=== PATIENT | female | born 1950 | race Caucasian/White ===

== ENCOUNTER → 2016-10-26 | Outpatient (REF) | payer OTHER ==
[2016-10-26 16:40] LABS: CREATININE FOR GFR 1.03 MG/DL (0.55-1.02); GLOMERULAR FILTRATION RATE 57.4 (>45)
== END ==
LOC: M LABDRAW1 15:28
PROVIDERS: ATTEND Physical Medicine & Rehabilitation
DX: M51.37 Other intervertebral disc degeneration, lumbosacral region (principal)

== ENCOUNTER → 2016-12-07 | Outpatient (REF) | payer OTHER ==
[2016-12-07 16:14] LABS: FREE T4 0.84 NG/DL (0.76-1.46)
[2016-12-07 16:31] LABS: MEAN CORPUSCULAR HEMOGLOBIN 29.4 pg (27.0-33.0); MEAN CORPUSCULAR HGB CONC 32.2 g/dl (32.0-36.5); MEAN CORPUSCULAR VOLUME 91.2 fl (80.0-96.0); WHITE BLOOD COUNT 7.5 K/mm3 (4.0-10.0)
[2016-12-07 21:59] LABS: EOSINOPHILS 1 % (0-5)
== END ==
LOC: M LABDRAW1 15:38
PROVIDERS: ATTEND Obstetrics & Gynecology
DX: N95.1 Menopausal and female climacteric states (principal)

== ENCOUNTER → 2017-04-18 | Outpatient (REF) | payer OTHER, MEDICARE | LOC: M LAB REF 10:42 | PROVIDERS: ATTEND Internal Medicine | DX: M17.0 Bilateral primary osteoarthritis of knee (principal) ==

== ENCOUNTER → 2017-08-31 | Outpatient (REF) | payer OTHER ==
[2017-08-31 15:28] LABS: PLATELET COUNT, AUTOMATED 260 10^3/uL (150-450)
[2017-08-31 15:39] LABS: INR 0.92; PROTHROMBIN TIME 12.4 SECONDS (12.4-14.5)
[2017-08-31 15:40] LABS: PARTIAL THROMBOPLASTIN TIME 31.7 SECONDS (26.8-37.9)
== END ==
LOC: M LABDRAW1 14:55
DX: Z79.899 Other long term (current) drug therapy (principal)

== ENCOUNTER 2017-09-30 12:09 | Emergency (ER) | payer MEDICARE, OTHER, BC ==
[2017-09-30] MEDS: NS 1,000 ML IV ×2 (13:11→14:48)
[2017-09-30] MEDS: ACETAMINOPHEN TAB 650MG DOSE (2X325MG) PO (13:20)
[2017-09-30 13:33] LABS: BASO % 0.3 % (0.0-1.0); EOS % 0.1 % (0.0-3.0); HEMATOCRIT 36.4 % (36.0-47.0); IMMATURE GRANULOCYTE % 0.3 % (0-0); LYMPH # 0.8 10^3/uL (1.5-4.5); LYMPH % 11.3 % (24.0-44.0); MEAN CORPUSCULAR HEMOGLOBIN 29.6 pg (27.0-33.0); MEAN CORPUSCULAR VOLUME 89.7 fl (80.0-96.0); MONO # 0.8 10^3/uL (0.0-0.8); MONO % 12.2 % (0.0-5.0); NEUTROPHILS # 5.2 10^3/uL (1.8-7.7); NEUTROPHILS % 75.8 % (36.0-66.0); PLATELET COUNT, AUTOMATED 189 10^3/uL (150-450); RED BLOOD COUNT 4.06 10^6/uL (4.00-5.40); RED CELL DISTRIBUTION WIDTH 13.3 % (11.5-14.5); WHITE BLOOD COUNT 6.8 10^3/uL (4.0-10.0)
[2017-09-30 14:04] LABS: ALBUMIN 3.5 GM/DL (3.2-5.2); ALBUMIN/GLOBULIN RATIO 1.09 (1.00-1.93); ALKALINE PHOSPHATASE 116 U/L (45-117); ALT/SGPT 171 U/L (12-78); ANION GAP 8 MEQ/L (8-16); AST/SGOT 156 U/L (7-37); BILIRUBIN,TOTAL 0.3 MG/DL (0.2-1.0); BLOOD UREA NITROGEN 12 MG/DL (7-18); CALCIUM LEVEL 8.5 MG/DL (8.8-10.2); CARBON DIOXIDE LEVEL 24 MEQ/L (21-32); CHLORIDE LEVEL 105 MEQ/L (98-107); CREATININE FOR GFR 1.32 MG/DL (0.55-1.30); GLUCOSE, FASTING 124 MG/DL (70-100); POTASSIUM SERUM 3.7 MEQ/L (3.5-5.1); SODIUM LEVEL 137 MEQ/L (136-145); TOTAL PROTEIN 6.7 GM/DL (6.4-8.2)
[2017-09-30 14:05] LABS: CPK CREATINE PHOSPHOKINASE 58 U/L (26-192); TROPONIN I < 0.02 NG/ML (< 0.10)
[2017-09-30 14:06] LABS: MB/CK RELATIVE INDEX 1.72 (< OR =4)
[2017-09-30] MEDS ORDERED: NS 1,000 ML IV (14:15)
== END 2017-09-30 16:27 | disposition home or self-care (01) ==
LOC: M ED 12:09
DX: J20.8 Acute bronchitis due to other specified organisms (principal); E86.0 Dehydration; F33.9 Major depressive disorder, recurrent, unspecified; K58.9 Irritable bowel syndrome, unspecified; Z79.899 Other long term (current) drug therapy; Z88.5 Allergy status to narcotic agent; Z88.8 Allergy status to other drugs, medicaments and biological substances; F17.210 Nicotine dependence, cigarettes, uncomplicated

== ENCOUNTER 2017-10-01 15:29 | Inpatient (IN) | payer MEDICARE, OTHER, BC ==
[2017-10-01] MEDS: IPRATROPIUM 0.5MG/ALBUTEROL 2.5MG INH SOL UD 3ML (DUONEB)(J7620) NEB ×2 (17:33→22:17)
[2017-10-01] MEDS: methylPREDNISolone INJ 125 MG/2 ML VIAL (J2930) IV (17:37)
[2017-10-01] MEDS: ACETAMINOPHEN 325 MG TAB PO (17:38)
[2017-10-01 17:43] LABS: BASO % 0.2 % (0.0-1.0); EOS % 0.1 % (0.0-3.0); HEMATOCRIT 37.7 % (36.0-47.0); HEMOGLOBIN 12.5 g/dl (12.0-16.0); IMMATURE GRANULOCYTE % 0.2 % (0-0); LYMPH % 11.4 % (24.0-44.0); MEAN CORPUSCULAR HEMOGLOBIN 29.9 pg (27.0-33.0); MEAN CORPUSCULAR HGB CONC 33.2 g/dl (32.0-36.5); MEAN CORPUSCULAR VOLUME 90.2 fl (80.0-96.0); MONO # 0.5 10^3/uL (0.0-0.8); MONO % 5.9 % (0.0-5.0); NEUTROPHILS # 6.9 10^3/uL (1.8-7.7); NEUTROPHILS % 82.2 % (36.0-66.0); PLATELET COUNT, AUTOMATED 171 10^3/uL (150-450); RED BLOOD COUNT 4.18 10^6/uL (4.00-5.40); RED CELL DISTRIBUTION WIDTH 13.1 % (11.5-14.5); WHITE BLOOD COUNT 8.3 10^3/uL (4.0-10.0)
[2017-10-01] MEDS: NS 1,000 ML IV ×2 (17:44→18:55)
[2017-10-01 17:55] LABS: ABG BASE EXCESS 1.6 (-2.0-2.0); ABG O2 SATURATION 93.3 % (95.0-99.0); ABG PARTIAL PRESSURE CO2 35.4 mmHg (35.0-45.0); ABG PARTIAL PRESSURE O2 62.7 mmHg (75.0-100.0); ABG STANDARD HCO3 25.8 MEQ/L (22.0-26.0); ABG TOTAL CO2 26.1 MEQ/L (23.0-31.0); ABG pH (ARTERIAL) 7.467 UNITS (7.350-7.450)
[2017-10-01 18:01] LABS: LACTIC ACID SEPSIS PROTOCOL 1.5 MMOL/L (0.4-2.0)
[2017-10-01 18:03] LABS: ALBUMIN 3.4 GM/DL (3.2-5.2); ALBUMIN/GLOBULIN RATIO 0.87 (1.00-1.93); ALKALINE PHOSPHATASE 141 U/L (45-117); ALT/SGPT 228 U/L (12-78); ANION GAP 7 MEQ/L (8-16); AST/SGOT 241 U/L (7-37); BILIRUBIN,DIRECT < 0.1 MG/DL (0.0-0.2); BILIRUBIN,TOTAL 0.6 MG/DL (0.2-1.0); BLOOD UREA NITROGEN 9 MG/DL (7-18); CALCIUM LEVEL 8.5 MG/DL (8.8-10.2); CARBON DIOXIDE LEVEL 25 MEQ/L (21-32); CHLORIDE LEVEL 104 MEQ/L (98-107); CK-MB VALUE MASS 1.3 NG/ML (0.0-3.6); CPK CREATINE PHOSPHOKINASE 137 U/L (26-192); CREATININE FOR GFR 0.96 MG/DL (0.55-1.30); GLOMERULAR FILTRATION RATE > 60.0 (>45); GLUCOSE, FASTING 102 MG/DL (70-100); MB/CK RELATIVE INDEX 0.94 (< OR =4); POTASSIUM SERUM 4.2 MEQ/L (3.5-5.1); SODIUM LEVEL 136 MEQ/L (136-145); TOTAL PROTEIN 7.3 GM/DL (6.4-8.2); TROPONIN I < 0.02 NG/ML (< 0.10)
[2017-10-01 18:16] LABS: INFLUENZA A AMPLIFICATION NEGATIVE (NEGATIVE); INFLUENZA B AMPLIFICATION NEGATIVE (NEGATIVE)
[2017-10-01] MEDS: CEFTRIAXONE SOD 1 GM in APPROPRIATE DILUENT 1 EA IV (18:55)
[2017-10-01 19:07] LABS: KETONE, URINE AUTO RFX NEGATIVE (NEGATIVE); LEUKOCYTE ESTERASE UR AUTO RFX NEGATIVE (NEGATIVE); MUCUS, URINE RFX SMALL (NEGATIVE); NITRITE, URINE AUTO RFX NEGATIVE (NEGATIVE); RBC, URINE AUTO RFX 5 /HPF (0-3); SPECIFIC GRAVITY UR AUTO RFX 1.015 (1.002-1.035); SQUAM EPITHELIAL CELL UR AURFX 1 /HPF (0-6); WBC, URINE AUTO RFX 1 /HPF (0-3)
[2017-10-01] MEDS ORDERED: ONDANSETRON 4MG/2ML VIAL (J2405) IV (19:30)
[2017-10-01] MEDS: AZITHROMYCIN INJ 500 MG, VIAL MATE ADAPTER 1 EACH in D5W 250 ML IV (19:45)
[2017-10-01] MEDS: BUDESONIDE 0.5 MG/2 ML INHALATION SUSPENSION INH (20:00)
[2017-10-01] MEDS: PANTOPRAZOLE 40MG TAB (PROTONIX) PO (21:51)
[2017-10-01] MEDS: DULoxetine 30 MG CAP (CYMBALTA) PO (21:51)
[2017-10-01] MEDS: clonazePAM 1 MG TAB PO (21:51)
[2017-10-01] MEDS: ATENOLOL 50 MG TAB PO (21:52)
[2017-10-02 06:22] LABS: HEMATOCRIT 34.3 % (36.0-47.0); HEMOGLOBIN 11.3 g/dl (12.0-16.0); IMMATURE GRANULOCYTE % 0.2 % (0-0); LYMPH # 0.7 10^3/uL (1.5-4.5); LYMPH % 13.3 % (24.0-44.0); MEAN CORPUSCULAR HEMOGLOBIN 29.4 pg (27.0-33.0); MEAN CORPUSCULAR HGB CONC 32.9 g/dl (32.0-36.5); MEAN CORPUSCULAR VOLUME 89.3 fl (80.0-96.0); MONO # 0.1 10^3/uL (0.0-0.8); MONO % 2.5 % (0.0-5.0); NEUTROPHILS # 4.3 10^3/uL (1.8-7.7); PLATELET COUNT, AUTOMATED 176 10^3/uL (150-450); RED BLOOD COUNT 3.84 10^6/uL (4.00-5.40); WHITE BLOOD COUNT 5.1 10^3/uL (4.0-10.0)
[2017-10-02 06:43] LABS: ALBUMIN/GLOBULIN RATIO 0.77 (1.00-1.93); ALKALINE PHOSPHATASE 126 U/L (45-117); ALT/SGPT 259 U/L (12-78); ANION GAP 8 MEQ/L (8-16); AST/SGOT 253 U/L (7-37); BILIRUBIN,TOTAL 0.3 MG/DL (0.2-1.0); BLOOD UREA NITROGEN 11 MG/DL (7-18); CALCIUM LEVEL 8.5 MG/DL (8.8-10.2); CARBON DIOXIDE LEVEL 26 MEQ/L (21-32); CHLORIDE LEVEL 108 MEQ/L (98-107); GLOMERULAR FILTRATION RATE > 60.0 (>45); GLUCOSE, FASTING 158 MG/DL (70-100); POTASSIUM SERUM 3.8 MEQ/L (3.5-5.1); SODIUM LEVEL 142 MEQ/L (136-145); TOTAL PROTEIN 6.9 GM/DL (6.4-8.2)
[2017-10-02] MEDS: BUDESONIDE 0.5 MG/2 ML INHALATION SUSPENSION INH ×2 (09:43→20:17)
[2017-10-02] MEDS: IPRATROPIUM 0.5MG/ALBUTEROL 2.5MG INH SOL UD 3ML (DUONEB)(J7620) NEB ×4 (09:43→20:16)
[2017-10-02] MEDS: ATENOLOL 50 MG TAB PO (10:25)
[2017-10-02] MEDS: AZITHROMYCIN 250 MG TAB PO (10:25)
[2017-10-02] MEDS: methylPREDNISolone INJ 40 MG/1 ML VIAL (J2920) IV (14:29)
[2017-10-02] MEDS: DOXYCYCLINE HYCLATE 100 MG in D5W MINI-BAG PLUS 100 ML IV (14:29)
[2017-10-02] MEDS: IBUPROFEN 800 MG TAB PO (16:00)
[2017-10-02] MEDS: CEFTRIAXONE SOD 2 GM in APPROPRIATE DILUENT 1 EA IV (17:45)
[2017-10-02] MEDS: clonazePAM 1 MG TAB PO (20:51)
[2017-10-02] MEDS: DULoxetine 30 MG CAP (CYMBALTA) PO (20:51)
[2017-10-02] MEDS: ATENOLOL 25 MG TAB PO (20:51)
[2017-10-02] MEDS: PANTOPRAZOLE 40MG TAB (PROTONIX) PO (20:51)
[2017-10-02] MEDS ORDERED: CEFTRIAXONE SOD 1 GM in APPROPRIATE DILUENT 1 EA IV (21:00)
[2017-10-03] MEDS: DOXYCYCLINE HYCLATE 100 MG in D5W MINI-BAG PLUS 100 ML IV ×2 (03:01→14:13)
[2017-10-03] MEDS: ALBUTEROL SULFATE 2.5 MG/0.5 ML INH NEB SOLN NEB ×3 (04:31→23:39)
[2017-10-03] MEDS: methylPREDNISolone INJ 40 MG/1 ML VIAL (J2920) IV (08:44)
[2017-10-03] MEDS: ATENOLOL 25 MG TAB PO ×2 (08:44→21:44)
[2017-10-03 08:52] LABS: BASO % 0.1 % (0.0-1.0); HEMATOCRIT 33.6 % (36.0-47.0); IMMATURE GRANULOCYTE # 0.1 10^3/uL (0-0); IMMATURE GRANULOCYTE % 0.4 % (0-0); LYMPH # 1.3 10^3/uL (1.5-4.5); LYMPH % 11.2 % (24.0-44.0); MEAN CORPUSCULAR HEMOGLOBIN 29.6 pg (27.0-33.0); MEAN CORPUSCULAR HGB CONC 32.7 g/dl (32.0-36.5); MEAN CORPUSCULAR VOLUME 90.6 fl (80.0-96.0); MONO # 0.4 10^3/uL (0.0-0.8); MONO % 3.3 % (0.0-5.0); NEUTROPHILS # 9.6 10^3/uL (1.8-7.7); PLATELET COUNT, AUTOMATED 183 10^3/uL (150-450); RED BLOOD COUNT 3.71 10^6/uL (4.00-5.40); RED CELL DISTRIBUTION WIDTH 13.3 % (11.5-14.5); WHITE BLOOD COUNT 11.4 10^3/uL (4.0-10.0)
[2017-10-03] MEDS: IPRATROPIUM 0.5MG/ALBUTEROL 2.5MG INH SOL UD 3ML (DUONEB)(J7620) NEB ×3 (09:39→20:14)
[2017-10-03] MEDS: BUDESONIDE 0.5 MG/2 ML INHALATION SUSPENSION INH ×2 (09:39→20:15)
[2017-10-03 09:41] LABS: ALBUMIN 3.1 GM/DL (3.2-5.2); ALBUMIN/GLOBULIN RATIO 0.86 (1.00-1.93); ALKALINE PHOSPHATASE 108 U/L (45-117); ALT/SGPT 199 U/L (12-78); ANION GAP 7 MEQ/L (8-16); AST/SGOT 184 U/L (7-37); BILIRUBIN,TOTAL 0.2 MG/DL (0.2-1.0); BLOOD UREA NITROGEN 13 MG/DL (7-18); CARBON DIOXIDE LEVEL 28 MEQ/L (21-32); CHLORIDE LEVEL 109 MEQ/L (98-107); GLOMERULAR FILTRATION RATE > 60.0 (>45); GLUCOSE, FASTING 105 MG/DL (70-100); POTASSIUM SERUM 3.5 MEQ/L (3.5-5.1); SODIUM LEVEL 144 MEQ/L (136-145); TOTAL PROTEIN 6.7 GM/DL (6.4-8.2)
[2017-10-03] MEDS: CEFTRIAXONE SOD 2 GM in APPROPRIATE DILUENT 1 EA IV (17:58)
[2017-10-03] MEDS: DULoxetine 30 MG CAP (CYMBALTA) PO (21:43)
[2017-10-03] MEDS: clonazePAM 1 MG TAB PO (21:43)
[2017-10-03] MEDS: PANTOPRAZOLE 40MG TAB (PROTONIX) PO (21:43)
[2017-10-03] MEDS: IRBESARTAN 150 MG TAB PO (22:38)
[2017-10-04] MEDS: DOXYCYCLINE HYCLATE 100 MG in D5W MINI-BAG PLUS 100 ML IV ×2 (01:47→13:59)
[2017-10-04 07:18] LABS: HEMATOCRIT 31.8 % (36.0-47.0); HEMOGLOBIN 10.6 g/dl (12.0-16.0); IMMATURE GRANULOCYTE # 0.1 10^3/uL (0-0); IMMATURE GRANULOCYTE % 0.8 % (0-0); LYMPH # 2.5 10^3/uL (1.5-4.5); LYMPH % 23.7 % (24.0-44.0); MEAN CORPUSCULAR HEMOGLOBIN 29.1 pg (27.0-33.0); MEAN CORPUSCULAR HGB CONC 33.3 g/dl (32.0-36.5); MEAN CORPUSCULAR VOLUME 87.4 fl (80.0-96.0); MONO # 0.5 10^3/uL (0.0-0.8); MONO % 4.8 % (0.0-5.0); NEUTROPHILS # 7.4 10^3/uL (1.8-7.7); NEUTROPHILS % 70.7 % (36.0-66.0); PLATELET COUNT, AUTOMATED 191 10^3/uL (150-450); RED BLOOD COUNT 3.64 10^6/uL (4.00-5.40); RED CELL DISTRIBUTION WIDTH 13.2 % (11.5-14.5); WHITE BLOOD COUNT 10.5 10^3/uL (4.0-10.0)
[2017-10-04 07:30] LABS: ALBUMIN/GLOBULIN RATIO 0.88 (1.00-1.93); ALKALINE PHOSPHATASE 98 U/L (45-117); ALT/SGPT 149 U/L (12-78); ANION GAP 7 MEQ/L (8-16); AST/SGOT 135 U/L (7-37); BILIRUBIN,TOTAL 0.4 MG/DL (0.2-1.0); BLOOD UREA NITROGEN 13 MG/DL (7-18); CARBON DIOXIDE LEVEL 30 MEQ/L (21-32); CHLORIDE LEVEL 105 MEQ/L (98-107); CREATININE FOR GFR 0.77 MG/DL (0.55-1.30); GLOMERULAR FILTRATION RATE > 60.0 (>45); GLUCOSE, FASTING 89 MG/DL (70-100); POTASSIUM SERUM 3.3 MEQ/L (3.5-5.1); SODIUM LEVEL 142 MEQ/L (136-145); TOTAL PROTEIN 6.4 GM/DL (6.4-8.2)
[2017-10-04] MEDS: IPRATROPIUM 0.5MG/ALBUTEROL 2.5MG INH SOL UD 3ML (DUONEB)(J7620) NEB ×3 (07:36→19:28)
[2017-10-04] MEDS: BUDESONIDE 0.5 MG/2 ML INHALATION SUSPENSION INH ×2 (07:36→19:28)
[2017-10-04] MEDS: methylPREDNISolone INJ 40 MG/1 ML VIAL (J2920) IV (08:53)
[2017-10-04] MEDS: ATENOLOL 25 MG TAB PO ×2 (08:53→21:33)
[2017-10-04] MEDS: guaiFENesin SYRUP 200 MG/10 ML UDC PO ×2 (17:05→23:22)
[2017-10-04] MEDS ORDERED: cefTRIAXone SOD 2 GM VIAL (J0696) IM (18:00)
[2017-10-04] MEDS: DULoxetine 30 MG CAP (CYMBALTA) PO (21:33)
[2017-10-04] MEDS: DOXYCYCLINE HYCLATE 100 MG TAB PO (21:33)
[2017-10-04] MEDS: clonazePAM 1 MG TAB PO (21:33)
[2017-10-04] MEDS: IRBESARTAN 150 MG TAB PO (21:35)
[2017-10-04] MEDS: PANTOPRAZOLE 40MG TAB (PROTONIX) PO (21:35)
[2017-10-04] MEDS: ALBUTEROL SULFATE 2.5 MG/0.5 ML INH NEB SOLN NEB (23:43)
[2017-10-05 07:03] LABS: BASO % 0.1 % (0.0-1.0); HEMOGLOBIN 11.1 g/dl (12.0-16.0); IMMATURE GRANULOCYTE # 0.1 10^3/uL (0-0); IMMATURE GRANULOCYTE % 1.2 % (0-0); LYMPH # 1.9 10^3/uL (1.5-4.5); MEAN CORPUSCULAR HEMOGLOBIN 29.4 pg (27.0-33.0); MEAN CORPUSCULAR HGB CONC 33.6 g/dl (32.0-36.5); MEAN CORPUSCULAR VOLUME 87.5 fl (80.0-96.0); MONO # 0.4 10^3/uL (0.0-0.8); MONO % 5.8 % (0.0-5.0); NEUTROPHILS # 4.9 10^3/uL (1.8-7.7); NEUTROPHILS % 66.9 % (36.0-66.0); PLATELET COUNT, AUTOMATED 212 10^3/uL (150-450); RED BLOOD COUNT 3.77 10^6/uL (4.00-5.40); RED CELL DISTRIBUTION WIDTH 13.2 % (11.5-14.5); WHITE BLOOD COUNT 7.4 10^3/uL (4.0-10.0)
[2017-10-05 07:33] LABS: ALBUMIN 2.8 GM/DL (3.2-5.2); ALBUMIN/GLOBULIN RATIO 0.72 (1.00-1.93); ALKALINE PHOSPHATASE 93 U/L (45-117); ALT/SGPT 132 U/L (12-78); ANION GAP 8 MEQ/L (8-16); AST/SGOT 99 U/L (7-37); BILIRUBIN,TOTAL 0.5 MG/DL (0.2-1.0); BLOOD UREA NITROGEN 16 MG/DL (7-18); CALCIUM LEVEL 9.2 MG/DL (8.8-10.2); CARBON DIOXIDE LEVEL 30 MEQ/L (21-32); CHLORIDE LEVEL 105 MEQ/L (98-107); CREATININE FOR GFR 0.71 MG/DL (0.55-1.30); GLOMERULAR FILTRATION RATE > 60.0 (>45); GLUCOSE, FASTING 107 MG/DL (70-100); POTASSIUM SERUM 3.3 MEQ/L (3.5-5.1); SODIUM LEVEL 143 MEQ/L (136-145); TOTAL PROTEIN 6.7 GM/DL (6.4-8.2)
[2017-10-05] MEDS: IPRATROPIUM 0.5MG/ALBUTEROL 2.5MG INH SOL UD 3ML (DUONEB)(J7620) NEB (07:57)
[2017-10-05] MEDS: BUDESONIDE 0.5 MG/2 ML INHALATION SUSPENSION INH (07:57)
[2017-10-05] MEDS: guaiFENesin SYRUP 200 MG/10 ML UDC PO (08:35)
[2017-10-05] MEDS: predniSONE 50 MG TAB PO (08:36)
[2017-10-05] MEDS: DOXYCYCLINE HYCLATE 100 MG TAB PO (08:36)
[2017-10-05] MEDS: POTASSIUM CHLORIDE 10 MEQ SR TABLET PO (08:36)
[2017-10-05] MEDS: ATENOLOL 25 MG TAB PO (08:40)
[2017-10-05] MEDS ORDERED: SLF 3 ML SYR IV ×2 (09:30→14:00)
== END 2017-10-05 11:30 | disposition home or self-care (01) | DRG 195 ==
LOC: M PED 10-02 21:00 → M ED 15:29 → M ED INP 19:18 → M MSPAV 22:29
DX: J18.9 Pneumonia, unspecified organism (principal); J98.01 Acute bronchospasm; B97.81 Human metapneumovirus as the cause of diseases classified elsewhere; I10 Essential (primary) hypertension; F41.9 Anxiety disorder, unspecified; K21.9 Gastro-esophageal reflux disease without esophagitis; E78.5 Hyperlipidemia, unspecified; F17.210 Nicotine dependence, cigarettes, uncomplicated; Z79.899 Other long term (current) drug therapy; Z88.5 Allergy status to narcotic agent; Z88.8 Allergy status to other drugs, medicaments and biological substances; Z90.710 Acquired absence of both cervix and uterus; Z90.49 Acquired absence of other specified parts of digestive tract

== ENCOUNTER → 2017-10-27 | Outpatient (REF) | payer MEDICARE, OTHER ==
[2017-10-27 13:35] LABS: FERRITIN 347 NG/ML (8-252); IRON (FE) 66 UG/DL (50-170); PERCENT SATURATION 26.8 % (13.2-45.0); TOTAL IRON BINDING CAPACITY 246 UG/DL (250-450)
[2017-10-27 15:15] LABS: VITAMIN B12 LEVEL 870 PG/ML
[2017-10-27 15:16] LABS: FOLATE 11.9 NG/ML
[2017-10-28 11:10] LABS: HEPATITIS B SURFACE ANTIGEN NEGATIVE (NEGATIVE)
[2017-10-28 11:15] LABS: HEPATITIS B CORE ANTIBODY IGM NEGATIVE (NEGATIVE)
[2017-10-28 11:19] LABS: HEPATITIS A ANTIBODY IGM NEGATIVE (NEGATIVE)
[2017-11-02 14:15] LABS: ANTINUCLEAR ANTIBODIES DIRECT Negative (Negative); CERULOPLASMIN 34.6 mg/dL (19.0-39.0); COPPER PLASMA 146 ug/dL (72-166)
== END ==
LOC: M LAB REF 12:11
DX: R94.5 Abnormal results of liver function studies (principal); R41.82 Altered mental status, unspecified
CPT/HCPCS: 82525

== ENCOUNTER → 2018-08-09 | Outpatient (REF) | payer MEDICARE, OTHER ==
[2018-08-09 18:25] LABS: AMORPHOUS SEDIMENT LARGE (NEGATIVE); APPEARANCE, URINE TURBID (CLEAR); BACTERIA, URINE AUTO NEGATIVE (NEGATIVE); BILIRUBIN, URINE AUTO NEGATIVE (NEGATIVE); BLOOD, URINE BLOOD 2+ (NEGATIVE); COLOR, URINE AMBER (YELLOW); GLUCOSE, URINE (UA) AUTO NEGATIVE (NEGATIVE); KETONE, URINE AUTO NEGATIVE (NEGATIVE); LEUKOCYTE ESTERASE, URINE AUTO NEGATIVE (NEGATIVE); MUCUS, URINE SMALL (NEGATIVE); NITRITE, URINE AUTO NEGATIVE (NEGATIVE); PROTEIN, URINE AUTO 1+ mg/dL (NEGATIVE); RBC, URINE AUTO 14 /HPF (0-3); SPECIFIC GRAVITY URINE AUTO 1.019 (1.002-1.035); SQUAMOUS EPITHELIAL CELL UR AU 6 /HPF (0-6); UROBILINOGEN, URINE AUTO 0.2 mg/dL (0.0-2.0); WBC, URINE AUTO 2 /HPF (0-3)
== END ==
LOC: M LAB REF 16:44
DX: N39.0 Urinary tract infection, site not specified (principal)
CPT/HCPCS: 81001

== ENCOUNTER 2018-10-05 12:21 | Emergency (ER) | payer MEDICARE, BC, OTHER ==
[~2018-10-05] VITALS: Ht 170.2 cm; Wt 86.4 kg
[~2018-10-05 12:21] MED LIST: ACET30TAB PO; APAP/CODEINE; ATEN50TA2 PO; CLON2TAB7 PO; DOXY100T PO; DULO1CAP2 PO; EZET10TA PO; HYDR12.55 PO; IRBE150T12 PO; PANT40TA3 PO; PRED10TA2 PO; RED1CAP5 PO; REST0.05 OU; VENTAER IN; VITA1TAB22 PO; VITA200016 PO
[2018-10-05] MEDS ORDERED: MECL-68 (12:29)
[2018-10-05] MEDS ORDERED: ACETAMINOPHEN 325 MG TAB PO ONE (14:45)
--- NOTE | 2018-10-05 15:28 | REP ---
CT Head without contrast HISTORY: Headache COMPARISON: None There is no intraparenchymal hemorrhage, acute infarct, mass or midline shift. The ventricular system is normal in appearance. There is no extra cerebral collection. There is no fracture. The visualized sinuses are clear. IMPRESSION: There is no intracranial lesion. Electronically Signed by Álvaro Bill MD 10/05/2018 03:20 P
[2018-10-05 15:32] LABS: BASO % 0.4 % (0.0-1.0); EOS # 0.1 10^3/uL (0.0-0.50); EOS % 0.7 % (0.0-3.0); HEMATOCRIT 39.4 % (36.0-47.0); HEMOGLOBIN 13.2 g/dl (12.0-15.5); LYMPH # 2.6 10^3/uL (1.5-4.5); LYMPH % 30.1 % (24.0-44.0); MEAN CORPUSCULAR HGB CONC 33.5 g/dl (32.0-36.5); MEAN CORPUSCULAR VOLUME 89.5 fl (80.0-96.0); MONO # 0.6 10^3/uL (0.0-0.8); MONO % 6.7 % (0.0-5.0); NEUTROPHILS # 5.2 10^3/uL (1.8-7.7); NEUTROPHILS % 61.7 % (36.0-66.0); PLATELET COUNT, AUTOMATED 291 10^3/uL (150-450); WHITE BLOOD COUNT 8.5 10^3/uL (4.0-10.0)
[2018-10-05] MEDS ORDERED: LABETALOL HCL 100 MG/20 ML VIAL IV STA (15:42)
[2018-10-05 15:43] LABS: APPEARANCE, URINE CLEAR (CLEAR); BACTERIA, URINE AUTO 1+ (NEGATIVE); BILIRUBIN, URINE AUTO NEGATIVE (NEGATIVE); BLOOD, URINE BLOOD 1+ (NEGATIVE); COLOR, URINE STRAW (YELLOW); GLUCOSE, URINE (UA) AUTO NEGATIVE (NEGATIVE); KETONE, URINE AUTO NEGATIVE (NEGATIVE); LEUKOCYTE ESTERASE, URINE AUTO NEGATIVE (NEGATIVE); NITRITE, URINE AUTO NEGATIVE (NEGATIVE); PROTEIN, URINE AUTO NEGATIVE (NEGATIVE); RBC, URINE AUTO 1 /HPF (0-3); SPECIFIC GRAVITY URINE AUTO 1.004 (1.002-1.035); SQUAMOUS EPITHELIAL CELL UR AU 1 /HPF (0-6); UROBILINOGEN, URINE AUTO 0.2 mg/dL (0.0-2.0); WBC, URINE AUTO 0 /HPF (0-3)
[2018-10-05 15:56] LABS: BLOOD UREA NITROGEN 11 MG/DL (7-18); CARBON DIOXIDE LEVEL 29 MEQ/L (21-32); CHLORIDE LEVEL 104 MEQ/L (98-107); GLOMERULAR FILTRATION RATE > 60.0 (>45); GLUCOSE, FASTING 93 MG/DL (70-100); POTASSIUM SERUM 4.9 MEQ/L (3.5-5.1); SODIUM LEVEL 137 MEQ/L (136-145)
[2018-10-05] MEDS ORDERED: METOCLOPRAMIDE INJ 10MG/2ML VIAL (J2765) IV ONE (16:00)
[2018-10-05] MEDS ORDERED: ZOFR4TAB16 PO (16:50)
[2018-10-05 17:01] VITALS: BP 168/77
--- NOTE | 2018-10-05 21:00 | ECGEPIP ---
Stationary ECG Study [facility] - ED Test Date: 2018-10-05 Pat Name: MADAN MUNIZ Department: Room: - Gender: F [employer] Teacher: fracisco : 1950 Requested By: TITO PEREZ PA-C. Order Number: [id number] Reading MD: Melisa Adkins Measurements Intervals [place] Rate: 55 P: 40 [place]: 191 QRS: 69 QRSD: 92 T: 62 QT: 471 QTc: 451 Interpretive Statements SINUS BRADYCARDIA MINIMAL ST DEPRESSION DECREASED RATE 10/01/17 Electronically Signed On 10-05-2018 21:00:19 EST by Melisa Adkins
== END 2018-10-05 17:10 | disposition home or self-care (01) ==
LOC: M ED 12:21
DX: I10 Essential (primary) hypertension (principal); B34.9 Viral infection, unspecified; R00.1 Bradycardia, unspecified; R51 Headache; Z87.820 Personal history of traumatic brain injury; R07.9 Chest pain, unspecified; E78.00 Pure hypercholesterolemia, unspecified; Z86.718 Personal history of other venous thrombosis and embolism; Z72.0 Tobacco use; Z87.01 Personal history of pneumonia (recurrent); G47.30 Sleep apnea, unspecified; K58.9 Irritable bowel syndrome, unspecified; K21.9 Gastro-esophageal reflux disease without esophagitis; M54.5 Low back pain; F32.9 Major depressive disorder, single episode, unspecified; Z79.899 Other long term (current) drug therapy; Z88.5 Allergy status to narcotic agent; Z88.8 Allergy status to other drugs, medicaments and biological substances
CPT/HCPCS: 36415; 70450; 80048; 81001; 84443; 85025; 93005; 96374; 96375; 99284; J2765

== ENCOUNTER → 2018-10-27 | Outpatient (REF) | payer MEDICARE, OTHER ==
[~2018-10-27] MED LIST changes: +MECL-68; +ZOFR4TAB16 PO
[2018-10-27 16:38] LABS: BLOOD UREA NITROGEN 18 MG/DL (7-18); CALCIUM LEVEL 9.2 MG/DL (8.8-10.2); CARBON DIOXIDE LEVEL 28 MEQ/L (21-32); CHLORIDE LEVEL 106 MEQ/L (98-107); CREATININE FOR GFR 0.93 MG/DL (0.55-1.30); GLOMERULAR FILTRATION RATE > 60.0 (>45); GLUCOSE, FASTING 97 MG/DL (70-100); SODIUM LEVEL 139 MEQ/L (136-145)
== END ==
LOC: M LABDRAW1 12:47
PROVIDERS: ATTEND Internal Medicine Cardiovascular Disease
DX: I10 Essential (primary) hypertension (principal)

== ENCOUNTER → 2018-11-01 | Outpatient (REF) | payer MEDICARE, OTHER ==
[2018-11-01 19:40] LABS: TOTAL VOLUME, URINE 1300 ML
[2018-11-01 19:43] LABS: SODIUM 24 HOUR URINE 88 MEQ/24HR (40-220); SODIUM, URINE 68 MEQ/L
[2018-11-08 08:23] LABS: DOPAMINE 218 ug/24 hr (0-510); DOPAMINE TOTAL URINE 168 ug/L (Undefined); EPINEPHRINE 4 ug/24 hr (0-20); EPINEPHRINE TOTAL URINE 3 ug/L (Undefined); METANEPHRINE TOTAL URINE 76 ug/L (Undefined); METANEPHRINE URINE 99 ug/24 hr (45-290); NOREPINEPHRINE 56 ug/24 hr (0-135); NOREPINEPHRINE TOTAL URINE 43 ug/L (Undefined); NORMETANEPHRINE TOTAL URINE 307 ug/L (Undefined); NORMETANEPHRINE URINE 399 ug/24 hr (82-500)
== END ==
LOC: M LAB REF 15:45
PROVIDERS: ATTEND Nurse Practitioner Family
DX: I10 Essential (primary) hypertension (principal)

== ENCOUNTER 2019-02-15 12:47 | Emergency (ER) | payer MEDICARE, OTHER, BC ==
[~2019-02-15] VITALS: Ht 170.2 cm; Wt 85.5 kg
[~2019-02-15 12:47] MED LIST changes: +ACET-716 PO; -ACET30TAB PO; +CYAN100T5 PO; -EZET10TA PO; +EZET10TA21 PO; -VITA1TAB22 PO
--- NOTE | 2019-02-15 14:43 | REP ---
DEEP VENOUS ULTRASONOGRAPHY RIGHT THIGH, RULE OUT DVT: REASON: Pain and swelling. PRIOR EXAM: 12/27/2017 was normal. TECHNIQUE: Multiple ultrasonographic images of the deep venous structures of the thigh were obtained from the common femoral vein to the popliteal vein along with Doppler interrogation and color flow Doppler images. FINDINGS: There is no abnormal echogenic material seen within any of the visualized deep venous structures that would suggest acute thrombosis. Coaptation is unremarkable throughout. Doppler interrogation shows an expected response to respiratory variability and augmentation. The color flow images show what appears to be a normal vascular pattern throughout. Seen in the posterior knee soft tissues medial to the knee joint, there is a 2.9 x 1.1 x 2.7 cm sized slightly complex fluid collection likely representing a Mccann's cyst. This would need to be correlated clinically. IMPRESSION: 1. No evidence of a deep venous thrombosis. 2. Possible Mccann's cyst as described above. Electronically Signed by Ahsan Ac DO 02/15/2019 03:04 P
[2019-02-15 15:00] VITALS: BP 118/56
== END 2019-02-15 15:00 | disposition home or self-care (01) ==
LOC: M ED 12:47
DX: M71.21 Synovial cyst of popliteal space [Baker], right knee (principal); I10 Essential (primary) hypertension; K58.9 Irritable bowel syndrome, unspecified; Z79.51 Long term (current) use of inhaled steroids; Z79.891 Long term (current) use of opiate analgesic; Z79.899 Other long term (current) drug therapy; Z88.5 Allergy status to narcotic agent; Z88.8 Allergy status to other drugs, medicaments and biological substances

== ENCOUNTER → 2019-06-19 | Outpatient (REF) | payer MEDICARE, OTHER ==
[~2019-06-19] MED LIST changes: -DULO1CAP2 PO; +DULO1CAP5 PO
[2019-06-20 17:07] LABS: FOLATE 11.7 NG/ML
== END ==
LOC: M LAB REF 16:36
PROVIDERS: ATTEND Internal Medicine
DX: R42 Dizziness and giddiness (principal)

== ENCOUNTER → 2020-06-17 | Outpatient (CLI) | payer MEDICARE, OTHER ==
[~2020-06-17] MED LIST changes: +CYAN100T4 PO; -CYAN100T5 PO; -IRBE150T12 PO; +IRBE150T7 PO; -MECL-68; +MECL1TAB31; +PANT40TA29 PO; -PANT40TA3 PO
[2020-06-17 18:52] LABS: BLOOD UREA NITROGEN 15 MG/DL (7-18); CREATININE FOR GFR 0.94 MG/DL (0.55-1.30); GLOMERULAR FILTRATION RATE > 60.0 (>45)
== END ==
LOC: M PLALAB 14:36
PROVIDERS: ATTEND Physician Assistant
DX: M47.817 Spondylosis without myelopathy or radiculopathy, lumbosacral region (principal)

== ENCOUNTER → 2020-09-25 | Outpatient (CLI) | payer SELFPAY | LOC: M LABSMTC 12:56 | PROVIDERS: ATTEND Pediatrics | DX: Z20.822 Contact with and (suspected) exposure to COVID-19 (principal) ==

== ENCOUNTER → 2020-10-08 | Outpatient (CLI) | payer MEDICARE, OTHER ==
[2020-10-08 13:55] LABS: BASO % 0.3 % (0.0-1.0); EOS # 0.1 10^3/uL (0.0-0.5); EOS % 0.6 % (0.0-3.0); HEMATOCRIT 40.3 % (36.0-47.0); HEMOGLOBIN 12.7 g/dl (12.0-15.5); LYMPH # 2.8 10^3/uL (1.5-5.0); LYMPH % 36.1 % (24.0-44.0); MEAN CORPUSCULAR HEMOGLOBIN 29.1 pg (27.0-33.0); MEAN CORPUSCULAR HGB CONC 31.5 g/dl (32.0-36.5); MEAN CORPUSCULAR VOLUME 92.4 fl (80.0-96.0); MONO # 0.5 10^3/uL (0.0-0.8); MONO % 6.6 % (0.0-5.0); NEUTROPHILS # 4.4 10^3/uL (1.5-8.5); PLATELET COUNT, AUTOMATED 280 10^3/uL (150-450); RED BLOOD COUNT 4.36 10^6/uL (4.00-5.40); WHITE BLOOD COUNT 7.8 10^3/uL (4.0-10.0)
[2020-10-08 14:13] LABS: C REACTIVE PROTEIN QUANTITATIV < 0.30 MG/DL (0.00-0.30); RHEUMATOID FACTOR QUANT < 10.0 IU/ML (<15.0)
[2020-10-08 14:15] LABS: ERYTHROCYTE SEDIMENTATION RATE 12 mm/hr (0-30)
[2020-10-09 14:10] LABS: Lyme Disease IgG/IgM Antibodie <0.91 ISR (0.00-0.90); Lyme Disease IgM Ab Quantitati <0.80 index (0.00-0.79)
== END ==
LOC: M PLALAB 12:00
PROVIDERS: ATTEND Physician Assistant
DX: M17.0 Bilateral primary osteoarthritis of knee (principal)

== ENCOUNTER → 2020-12-02 | Outpatient (CLI) | payer MEDICARE, BC, OTHER ==
--- NOTE | 2020-12-02 11:28 | REP ---
INDICATION: NICOTINE DEPEND. COMPARISON: Chest CT without IV contrast dated 03/07/2013. TECHNIQUE: The study is performed without IV contrast. The images are presented at lung windowing only. FINDINGS: There are no nodules or masses. There are no internal filtrates or pleural effusions. There is discoid atelectasis posteriorly in the right middle lobe and posteriorly in the lingula along the major fissures. This is a change from the prior study. IMPRESSION: There are no nodules or masses. This is a category 1 low-dose lung screening chest CT. The probability of malignancy is less than 1%. There is atelectasis posteriorly in the right middle lobe and in the lingula. Depending on risk factors consider annual follow-up low-dose lung screening chest CT. If there are symptoms from the atelectasis a follow-up study might be considered earlier. <Electronically signed by Alejandro Marquez > 12/02/20 [id number]
== END ==
LOC: M RAD 10:44
PROVIDERS: ATTEND Internal Medicine
DX: Z12.2 Encounter for screening for malignant neoplasm of respiratory organs (principal); F17.210 Nicotine dependence, cigarettes, uncomplicated; J98.11 Atelectasis

== ENCOUNTER → 2020-12-04 | Outpatient (CLI) | payer MEDICARE, BC, OTHER ==
--- NOTE | 2020-12-04 09:44 | REP ---
INDICATION: RADICULOPATHY M54.14. COMPARISON: None. TECHNIQUE: Sagittal T1, T2, stir images of the lumbar spine obtained. Axial T1 and T2 weighted images obtained. FINDINGS: There is mild multilevel degenerative disc disease with loss of disc height and disc desiccation seen diffusely throughout the thoracic spine. Vertebral heights are overall preserved. No malalignments. Thoracic cord appears normal in its course, caliber and signal characteristics. On the sagittal T2 weighted images, no evidence of limiting canal stenosis. On the axial images, no evidence of a disc herniation, no significant foraminal stenosis. IMPRESSION: Normal thoracic spine. No evidence of limiting canal or foraminal stenosis or disc herniation. <Electronically signed by Blanco Patel > 12/04/20 [id number]
== END ==
LOC: M PLARAD 08:28
PROVIDERS: ATTEND Pain Medicine Interventional Pain Medicine
DX: M51.14 Intervertebral disc disorders with radiculopathy, thoracic region (principal)

== ENCOUNTER → 2020-12-18 | Outpatient (CLI) | payer OTHER ==
[2020-12-18 17:28] LABS: PLATELET COUNT, AUTOMATED 302 10^3/uL (150-450)
[2020-12-18 17:39] LABS: PARTIAL THROMBOPLASTIN TIME 32.4 SECONDS (24.2-38.5); PROTHROMBIN TIME 13.4 SECONDS (12.5-14.3)
[2020-12-18 17:44] LABS: COLLAGEN EPINEPHRINE 132 SECONDS (74-162)
== END ==
LOC: M PLALAB 15:15
PROVIDERS: ATTEND Physician Assistant
DX: M47.817 Spondylosis without myelopathy or radiculopathy, lumbosacral region (principal)

== ENCOUNTER → 2021-02-16 | Outpatient (REF) | payer MEDICARE, OTHER | LOC: M LAB REF 16:46 | PROVIDERS: ATTEND Internal Medicine | DX: R94.5 Abnormal results of liver function studies (principal) ==

== ENCOUNTER → 2021-02-18 | Outpatient (REF) | payer MEDICARE, OTHER ==
[2021-02-18 16:41] LABS: BLOOD UREA NITROGEN 11 MG/DL (7-18); CREATININE FOR GFR 0.89 MG/DL (0.55-1.30); GLOMERULAR FILTRATION RATE > 60.0 (>45)
== END ==
LOC: M PLALAB 15:33
PROVIDERS: ATTEND Physical Medicine & Rehabilitation
DX: M54.16 Radiculopathy, lumbar region (principal)

== ENCOUNTER → 2021-02-23 | Outpatient (CLI) | payer OTHER ==
[~2021-02-23] MED LIST changes: +PROHANCE 279.3MG/ML 15ML VIAL As Ordered ONE; +PROHANCE 279.3MG/ML 5ML VIAL As Ordered ONE
--- NOTE | 2021-02-23 13:08 | REPVR ---
PROCEDURE INFORMATION: Exam: MR Lumbar Spine Without and With Contrast Exam date and time: 02/23/2021 10:40 AM Age: 70 years old Clinical indication: Low back pain; Prior surgery; Surgery date: 6+ months; Surgery type: Fusion; Additional info: Radiculopathy lumbar region TECHNIQUE: Imaging protocol: Multiplanar magnetic resonance images of the lumbar spine without and with intravenous contrast. Contrast material: PROHANCE; Contrast volume: 16 ml; Contrast route: INTRAVENOUS (IV); COMPARISON: MRI-Spine,Thoracic without con 12/04/2020 8:53 AM FINDINGS: Vertebrae: No acute compression fracture is seen. Posterior pedicle screw and eron fixation is present at L4 through S1. Levoconvex curvature of the lumbar spine is present. There is minimal retrolisthesis of L2 on L3. Spinal cord: The conus medullaris terminates at the T12-L1 level. There is no evidence of arachnoiditis or cauda equina compression. L1-L2: There is moderate facet arthropathy and thickening of the ligamentum flavum. This is causing mild left neural foraminal narrowing. There is no spinal canal or right foraminal stenosis. L2-L3: There is moderate diffuse circumferential disc bulging, facet arthropathy, thickening of the ligamentum flavum, and prominent posterior epidural fat. This is causing minimal spinal canal stenosis, mild narrowing of the right subarticular recess, mild/moderate right neural foraminal narrowing, and mild left neural foraminal narrowing. L3-L4: There is mild diffuse circumferential disc bulging, severe facet arthropathy, and marked thickening of the ligamentum flavum. This is causing mild spinal canal stenosis, mild narrowing of the subarticular recesses, mild left neural foraminal narrowing, and minimal right neural foraminal narrowing. L4-L5: Posterior fusion and a decompressive laminectomy is present. There is no spinal canal stenosis. Mild right and minimal left neural foraminal narrowing is present. L5-S1: Posterior fusion and a decompressive laminectomy is present. There is no spinal canal stenosis or significant neural foraminal narrowing. Soft tissues: Unremarkable. IMPRESSION: Postoperative and degenerative changes of the lumbar spine as discussed above Electronically signed by: Maulik Mcclain On 02/23/2021 13:07:45 PM
== END ==
LOC: M RAD 09:27
PROVIDERS: ATTEND Physical Medicine & Rehabilitation
DX: M51.16 Intervertebral disc disorders with radiculopathy, lumbar region (principal)
CPT/HCPCS: 72158; A9576

== ENCOUNTER → 2021-09-09 | Outpatient (CLI) | payer OTHER ==
[~2021-09-09] MED LIST changes: -PROHANCE 279.3MG/ML 15ML VIAL As Ordered ONE; -PROHANCE 279.3MG/ML 5ML VIAL As Ordered ONE
[2021-09-09 15:51] LABS: PLATELET COUNT, AUTOMATED 325 10^3/uL (150-450)
[2021-09-09 16:03] LABS: INR 0.91; PROTHROMBIN TIME 12.7 SECONDS (12.7-14.5)
[2021-09-09 16:04] LABS: PARTIAL THROMBOPLASTIN TIME 32.6 SECONDS (25.9-37.0)
== END ==
LOC: M PLALAB 13:31
PROVIDERS: ATTEND Physical Medicine & Rehabilitation
DX: M51.36 Other intervertebral disc degeneration, lumbar region (principal)

== ENCOUNTER → 2021-10-06 | Outpatient (REF) | payer MEDICARE, OTHER | LOC: M LAB REF 12:58 | PROVIDERS: ATTEND Physical Medicine & Rehabilitation | DX: M47.817 Spondylosis without myelopathy or radiculopathy, lumbosacral region (principal) ==

== ENCOUNTER → 2021-12-29 | Outpatient (CLI) | payer MEDICARE, BC, OTHER | LOC: M RAD 13:27 | PROVIDERS: ATTEND Internal Medicine | DX: Z12.2 Encounter for screening for malignant neoplasm of respiratory organs (principal); F17.210 Nicotine dependence, cigarettes, uncomplicated ==

== ENCOUNTER → 2022-06-24 | Outpatient (REF) | payer MEDICARE, OTHER | LOC: M PLALAB 16:53 | PROVIDERS: ATTEND Optometrist | DX: R51.9 Headache, unspecified (principal) ==

== ENCOUNTER → 2022-07-05 | Outpatient (CLI) | payer MEDICARE, BC, OTHER | LOC: M WHC 14:54 | PROVIDERS: ATTEND Internal Medicine | DX: Z12.31 Encounter for screening mammogram for malignant neoplasm of breast (principal) ==

== ENCOUNTER → 2022-08-04 | Outpatient (CLI) | payer MEDICARE, OTHER | LOC: M WUC 14:41 | PROVIDERS: ATTEND Physician Assistant Medical | DX: R07.89 Other chest pain (principal) ==

== ENCOUNTER → 2022-08-10 | Outpatient (CLI) | payer MEDICARE, BC, OTHER ==
[2022-08-10 16:22] LABS: CPK CREATINE PHOSPHOKINASE 31 U/L (34-145); RHEUMATOID FACTOR QUANT < 3.5 IU/ML (<14)
[2022-08-10 16:25] LABS: FOLATE > 24.00 NG/ML (>5.4); VITAMIN B12 LEVEL 766 PG/ML (211-911)
== END ==
LOC: M PLALAB 13:14
PROVIDERS: ATTEND Psychiatry & Neurology Neurology
DX: H53.9 Unspecified visual disturbance (principal); E51.9 Thiamine deficiency, unspecified; E53.8 Deficiency of other specified B group vitamins; E61.0 Copper deficiency

== ENCOUNTER → 2022-10-04 | Outpatient (CLI) | payer MEDICARE, BC, OTHER | LOC: M PLAIMG 11:02 | PROVIDERS: ATTEND Internal Medicine | DX: R10.11 Right upper quadrant pain (principal); Z90.49 Acquired absence of other specified parts of digestive tract; N20.0 Calculus of kidney; K57.30 Diverticulosis of large intestine without perforation or abscess without bleeding; Z98.1 Arthrodesis status ==

== ENCOUNTER → 2022-10-18 | Outpatient (CLI) | payer OTHER, MEDICARE ==
[2022-10-18 16:09] LABS: BLOOD UREA NITROGEN 18 MG/DL (9-23); CREATININE FOR GFR 0.79 MG/DL (0.55-1.30); GLOMERULAR FILTRATION RATE > 60.0 (>39)
[2022-10-18 16:11] LABS: CPK CREATINE PHOSPHOKINASE 64 U/L (34-145)
== END ==
LOC: M PLALAB 13:24
PROVIDERS: ATTEND Physical Medicine & Rehabilitation
DX: M47.817 Spondylosis without myelopathy or radiculopathy, lumbosacral region (principal)

== ENCOUNTER → 2022-11-02 | Outpatient (CLI) | payer MEDICARE, BC, OTHER ==
[~2022-11-02] MED LIST changes: +E-Z-GAS II EFFERVESCENT PACKET (SODIUM BICARB./CITRIC ACID/SIMETHICONE) As Ordered ONE; +E-Z-HD 98% w/w 340GM SUSP BTL As Ordered ONE; +E-Z-PAQUE 96% w/w SUSP 176GM BTL As Ordered ONE
== END ==
LOC: M RAD 09:41
PROVIDERS: ATTEND Surgery
DX: K21.9 Gastro-esophageal reflux disease without esophagitis (principal)

== ENCOUNTER → 2022-11-16 | Outpatient (CLI) | payer OTHER, MEDICARE ==
[~2022-11-16] MED LIST changes: -E-Z-GAS II EFFERVESCENT PACKET (SODIUM BICARB./CITRIC ACID/SIMETHICONE) As Ordered ONE; -E-Z-HD 98% w/w 340GM SUSP BTL As Ordered ONE; -E-Z-PAQUE 96% w/w SUSP 176GM BTL As Ordered ONE; +PROHANCE 279.3MG/ML 15ML VIAL As Ordered ONE; +PROHANCE 279.3MG/ML 5ML VIAL As Ordered ONE
== END ==
LOC: M RAD 08:58
PROVIDERS: ATTEND Physical Medicine & Rehabilitation
DX: M43.16 Spondylolisthesis, lumbar region (principal)
CPT/HCPCS: 72158; A9576

== ENCOUNTER → 2022-12-06 | Outpatient (REF) | payer OTHER, MEDICARE ==
[~2022-12-06] MED LIST changes: -PROHANCE 279.3MG/ML 15ML VIAL As Ordered ONE; -PROHANCE 279.3MG/ML 5ML VIAL As Ordered ONE
== END ==
LOC: M LAB REF 16:39
PROVIDERS: ATTEND Nurse Practitioner Family
DX: S81.801A Unspecified open wound, right lower leg, initial encounter (principal); X58.XXXA Exposure to other specified factors, initial encounter; Y92.9 Unspecified place or not applicable; Y93.9 Activity, unspecified; Y99.9 Unspecified external cause status

== ENCOUNTER → 2023-01-19 | Outpatient (CLI) | payer MEDICARE, OTHER | LOC: M WHC 14:57 | PROVIDERS: ATTEND Physician Assistant Medical | DX: N63.10 Unspecified lump in the right breast, unspecified quadrant (principal); N64.4 Mastodynia; R92.8 Other abnormal and inconclusive findings on diagnostic imaging of breast | CPT/HCPCS: 76642; 77065; G0279 ==

== ENCOUNTER → 2023-01-31 | Outpatient (CLI) | payer MEDICARE, BC, OTHER ==
[2023-01-31 15:44] LABS: BLOOD UREA NITROGEN 15 MG/DL (9-23); CREATININE FOR GFR 0.95 MG/DL (0.55-1.30); GLOMERULAR FILTRATION RATE > 60.0 (>39)
== END ==
LOC: M PLALAB 13:04
PROVIDERS: ATTEND Physician Assistant
DX: M16.0 Bilateral primary osteoarthritis of hip (principal); M70.61 Trochanteric bursitis, right hip

== ENCOUNTER → 2023-04-27 | Outpatient (CLI) | payer MEDICARE, BC, OTHER | LOC: M RAD 12:37 | PROVIDERS: ATTEND Nurse Practitioner Family | DX: I70.213 Atherosclerosis of native arteries of extremities with intermittent claudication, bilateral legs (principal) ==

== ENCOUNTER → 2023-05-13 | Outpatient (CLI) | payer MEDICARE, BC, OTHER ==
[~2023-05-13] MED LIST changes: +MECL-209; -MECL1TAB31
== END ==
LOC: M PLAIMG 13:29
PROVIDERS: ATTEND Physician Assistant
DX: M51.24 Other intervertebral disc displacement, thoracic region (principal); M50.20 Other cervical disc displacement, unspecified cervical region

== ENCOUNTER → 2023-09-07 | Outpatient (CLI) | payer MEDICARE, BC, OTHER ==
[~2023-09-07] MED LIST changes: +AMLO1TAB24 PO; +ASPI81TA26 PO; +BACL10TA2 PO; +CLOP75TA2 PO; +CRES10TA PO; +EQL50TAB2 PO; +FAMO40TA3 PO; +HYDR-3490 PO; +IRBE300T7 PO; +MINO2.5T PO; +ROSU5TAB5 PO
[2023-09-07 15:30] LABS: HEMATOCRIT 38.3 % (36.0-47.0); HEMOGLOBIN 12.1 g/dl (12.0-15.5); MEAN CORPUSCULAR HEMOGLOBIN 29.7 pg (27.0-33.0); MEAN CORPUSCULAR HGB CONC 31.6 g/dl (32.0-36.5); MEAN CORPUSCULAR VOLUME 94.1 fl (80.0-96.0); PLATELET COUNT, AUTOMATED 291 10^3/uL (150-450); RED BLOOD COUNT 4.07 10^6/uL (4.00-5.40); WHITE BLOOD COUNT 8.8 10^3/uL (4.0-10.0)
[2023-09-07 15:53] LABS: CALCIUM LEVEL 9.6 MG/DL (8.3-10.6); CREATININE FOR GFR 1.05 MG/DL (0.55-1.30); POTASSIUM SERUM 4.5 MMOL/L (3.5-5.1)
[2023-09-07 15:58] LABS: INR 1.1; PROTHROMBIN TIME 13.9 SECONDS (12.5-14.5)
[2023-09-07 15:59] LABS: PARTIAL THROMBOPLASTIN TIME 31.7 SECONDS (24.8-34.2)
== END ==
LOC: M PLALAB 14:08
PROVIDERS: ATTEND Physician Assistant
DX: Z01.818 Encounter for other preprocedural examination (principal); I70.90 Unspecified atherosclerosis; D69.8 Other specified hemorrhagic conditions

== ENCOUNTER → 2023-09-09 | Outpatient (CLI) | payer MEDICARE, BC, OTHER | LOC: M WHC 12:39 | PROVIDERS: ATTEND Internal Medicine | DX: M85.88 Other specified disorders of bone density and structure, other site (principal) ==

== ENCOUNTER → 2023-09-12 | Outpatient (CLI) | payer MEDICARE, BC, OTHER ==
[~2023-09-12] MED LIST changes: +PROHANCE 279.3MG/ML 15ML VIAL As Ordered ONE; +PROHANCE 279.3MG/ML 5ML VIAL As Ordered ONE
== END ==
LOC: M RAD 08:05
PROVIDERS: ATTEND Physician Assistant
DX: I65.22 Occlusion and stenosis of left carotid artery (principal)
CPT/HCPCS: 70549; A9576

== ENCOUNTER → 2023-10-31 | Outpatient (CLI) | payer MEDICARE, BC, OTHER ==
[~2023-10-31] MED LIST changes: +IRBE150T27 PO; -IRBE150T7 PO; +IRBE300T25 PO; -IRBE300T7 PO; -PROHANCE 279.3MG/ML 15ML VIAL As Ordered ONE; +PROHANCE 279.3MG/ML 15ML VIAL ONE; -PROHANCE 279.3MG/ML 5ML VIAL As Ordered ONE
== END ==
LOC: M PLAIMG 13:07
PROVIDERS: ATTEND Nurse Practitioner
DX: R92.8 Other abnormal and inconclusive findings on diagnostic imaging of breast (principal)
CPT/HCPCS: A9576; C8908

== ENCOUNTER 2024-02-17 17:07 | Emergency (ER) | payer MEDICARE, BC, OTHER ==
[~2024-02-17] VITALS: Ht 170.2 cm; Wt 84.4 kg
[~2024-02-17 17:07] MED LIST changes: -PROHANCE 279.3MG/ML 15ML VIAL ONE; +ROSU5TAB40 PO; -ROSU5TAB5 PO
[2024-02-17 17:11] VITALS: BP 156/68; TEMP 97.8; O2SAT 98
== END 2024-02-17 21:59 | disposition left against medical advice (07) ==
LOC: M ED 17:07
DX: Z53.21 Procedure and treatment not carried out due to patient leaving prior to being seen by health care provider (principal)

== ENCOUNTER → 2024-04-05 | Outpatient (CLI) | payer MEDICARE, BC, OTHER ==
[2024-04-05 14:07] LABS: BASO % 0.3 % (0.0-1.0); EOS # 0.1 10^3/uL (0.0-0.5); EOS % 0.6 % (0.0-3.0); HEMATOCRIT 39.1 % (36.0-47.0); HEMOGLOBIN 12.5 g/dl (12.0-15.5); LYMPH # 2.8 10^3/uL (1.5-5.0); LYMPH % 35.6 % (24.0-44.0); MEAN CORPUSCULAR HEMOGLOBIN 29.3 pg (27.0-33.0); MEAN CORPUSCULAR VOLUME 91.6 fl (80.0-96.0); MONO # 0.6 10^3/uL (0.0-0.8); MONO % 7.1 % (2.0-8.0); NEUTROPHILS # 4.4 10^3/uL (1.5-8.5); NEUTROPHILS % 56.3 % (36.0-66.0); PLATELET COUNT, AUTOMATED 266 10^3/uL (150-450); RED BLOOD COUNT 4.27 10^6/uL (4.00-5.40); WHITE BLOOD COUNT 7.8 10^3/uL (4.0-10.0)
[2024-04-05 14:34] LABS: ALBUMIN 4.2 G/DL (3.2-5.2); BILIRUBIN,TOTAL 0.5 MG/DL (0.3-1.2); CALCIUM LEVEL 9.8 MG/DL (8.3-10.6); CHOLESTEROL RISK RATIO 2.23 (<5); CREATININE FOR GFR 0.99 MG/DL (0.55-1.30); GLOMERULAR FILTRATION RATE 58.9 (>39); LDL CHOLESTEROL 45.6 MG/DL (<100); TOTAL PROTEIN 6.8 G/DL (5.7-8.2)
[2024-04-05 14:37] LABS: FREE THYROXINE INDEX 2.3 % (1.3-4.8); T UPTAKE 32.8 % (22.5-37.0); THYROID STIMULATING HORMONE 1.165 uIU/ML (0.55-4.78); THYROXINE (T4) 7.1 UG/DL (4.5-10.9)
== END ==
LOC: M PLALAB 11:09
PROVIDERS: ATTEND Psychiatry & Neurology Neurology
DX: I25.10 Atherosclerotic heart disease of native coronary artery without angina pectoris (principal); G45.9 Transient cerebral ischemic attack, unspecified; I73.9 Peripheral vascular disease, unspecified; Z79.899 Other long term (current) drug therapy

== ENCOUNTER 2024-05-08 15:33 | Inpatient (IN) | payer MEDICARE, BC, OTHER ==
[~2024-05-08] VITALS: Ht 170.2 cm; Wt 83.6 kg
[2024-05-08] MEDS ORDERED: NALOXONE INJ 0.4MG/1ML VIAL As Ordered ONE (15:49)
[2024-05-08 16:03] LABS: BASO % 0.3 % (0.0-1.0); HEMOGLOBIN 12.3 g/dl (12.0-15.5); LYMPH # 1.4 10^3/uL (1.5-5.0); LYMPH % 17.7 % (24.0-44.0); MEAN CORPUSCULAR HGB CONC 32.4 g/dl (32.0-36.5); MEAN CORPUSCULAR VOLUME 92.7 fl (80.0-96.0); MONO # 0.5 10^3/uL (0.0-0.8); MONO % 5.8 % (2.0-8.0); NEUTROPHILS # 5.9 10^3/uL (1.5-8.5); NEUTROPHILS % 75.9 % (36.0-66.0); PLATELET COUNT, AUTOMATED 216 10^3/uL (150-450); WHITE BLOOD COUNT 7.8 10^3/uL (4.0-10.0)
[2024-05-08] MEDS: NALOXONE INJ 0.4MG/1ML VIAL IV STA ×2 (16:03→20:57)
[2024-05-08 16:42] LABS: AMPHETAMINES LEVEL URINE NEGATIVE (NEGATIVE); BARBITURATES URINE NEGATIVE (NEGATIVE)
[2024-05-08 16:43] LABS: CANNABINOIDS URINE NEGATIVE (NEGATIVE); COCAINE METABOLITE URINE NEGATIVE (NEGATIVE); METHADONE URINE NEGATIVE (NEGATIVE); PHENCYCLIDINE URINE NEGATIVE (NEGATIVE)
[2024-05-08 16:49] LABS: BENZODIAZEPINES URINE POSITIVE (NEGATIVE); OPIATES URINE POSITIVE (NEGATIVE)
[2024-05-08] MEDS: NALOXONE 2MG/2ML SYRINGE IV STA (17:24)
[2024-05-08 17:35] LABS: CK-MB VALUE MASS 1.2 NG/ML (<3.6)
[2024-05-08 17:36] LABS: ETHYL ALCOHOL (ETHANOL) < 0.003 % (0.000-0.010)
[2024-05-08 17:37] LABS: CPK CREATINE PHOSPHOKINASE 87 U/L (34-145); MB/CK RELATIVE INDEX 1.37 (< OR =4)
[2024-05-08 17:38] LABS: SALICYLATE LEVEL < 3.0 MG/DL (<30)
[2024-05-08 17:45] LABS: ALBUMIN 3.8 G/DL (3.2-5.2); ALKALINE PHOSPHATASE 190 U/L (46-116); ALT/SGPT 96 U/L (7.0-40); AST/SGOT 49 U/L (<34); BILIRUBIN,DIRECT 0.1 MG/DL (<0.4); BILIRUBIN,TOTAL 0.4 MG/DL (0.3-1.2); BLOOD UREA NITROGEN 28 MG/DL (9-23); CALCIUM LEVEL 10.4 MG/DL (8.3-10.6); CARBON DIOXIDE LEVEL 27 MMOL/L (20-31); CHLORIDE LEVEL 111 MMOL/L (98-107); CREATININE FOR GFR 1.52 MG/DL (0.55-1.30); GLOMERULAR FILTRATION RATE 35.9 (>39); GLUCOSE, FASTING 116 MG/DL (74-106); POTASSIUM SERUM 4.8 MMOL/L (3.5-5.1); SODIUM LEVEL 143 MMOL/L (136-145); TOTAL PROTEIN 6.7 G/DL (5.7-8.2)
[2024-05-08 18:39] LABS: CK-MB VALUE MASS 1.4 NG/ML (<3.6)
[2024-05-08 18:42] LABS: MB/CK RELATIVE INDEX 1.33 (< OR =4)
[2024-05-08] MEDS ORDERED: ROSU20TA61 PO (20:15)
[2024-05-08] MEDS ORDERED: MAGN250T7 PO (20:15)
[2024-05-08] MEDS ORDERED: CLOP75TA2 PO (20:15)
[2024-05-08] MEDS ORDERED: VITA50TA6 PO (20:15)
[2024-05-08] MEDS ORDERED: B-12100010 PO (20:15)
[2024-05-08] MEDS ORDERED: VITA100C8 PO (20:15)
[2024-05-08] MEDS ORDERED: MECL-86 PO (20:15)
[2024-05-08] MEDS ORDERED: HOME MED LIST COMPLETE! XX SCH (20:20)
[2024-05-08] MEDS ORDERED: NALOXONE INJ 0.4MG/1ML VIAL IV PRN (21:35)
[2024-05-08] MEDS ORDERED: LR 1,000 ML IV SCH (21:35)
[2024-05-08 22:24] LABS: INR 1.03; PARTIAL THROMBOPLASTIN TIME 27.9 SECONDS (24.8-34.2); PROTHROMBIN TIME 13.2 SECONDS (12.5-14.5)
[2024-05-08 23:10] VITALS: BP 219/94; TEMP 97.1; O2SAT 99
[2024-05-08 23:58] VITALS: O2SAT 99
[2024-05-09] VITALS (23 sets, daily range): BP systolic 158–192; BP diastolic 67–81; TEMP 97.1–98.2; O2SAT 93–98
[2024-05-09] MEDS: IRBESARTAN 150MG TAB PO SCH ×2 (01:39→20:52)
[2024-05-09] MEDS: amLODIPine 5 MG TAB PO SCH (01:39)
[2024-05-09] MEDS ORDERED: PILL CUTTER 1 EACH XX PRN (01:50)
[2024-05-09] MEDS: ACETAMINOPHEN *IV* 1,000 MG in IV 1 EA IV ONE (04:38)
[2024-05-09] MEDS: METHOCARBAMOL 1,000 MG/10 ML VIAL IV ONE (05:15)
[2024-05-09 06:04] LABS: BASO % 0.3 % (0.0-1.0); EOS # 0.1 10^3/uL (0.0-0.5); EOS % 0.8 % (0.0-3.0); HEMATOCRIT 36.1 % (36.0-47.0); HEMOGLOBIN 11.7 g/dl (12.0-15.5); LYMPH # 2.5 10^3/uL (1.5-5.0); LYMPH % 37.5 % (24.0-44.0); MEAN CORPUSCULAR HEMOGLOBIN 29.5 pg (27.0-33.0); MEAN CORPUSCULAR HGB CONC 32.4 g/dl (32.0-36.5); MEAN CORPUSCULAR VOLUME 91.2 fl (80.0-96.0); MONO # 0.6 10^3/uL (0.0-0.8); MONO % 8.4 % (2.0-8.0); NEUTROPHILS # 3.5 10^3/uL (1.5-8.5); NEUTROPHILS % 52.8 % (36.0-66.0); PLATELET COUNT, AUTOMATED 220 10^3/uL (150-450); RED BLOOD COUNT 3.96 10^6/uL (4.00-5.40); WHITE BLOOD COUNT 6.6 10^3/uL (4.0-10.0)
[2024-05-09 06:34] LABS: ALBUMIN 3.5 G/DL (3.2-5.2); ALKALINE PHOSPHATASE 168 U/L (46-116); ALT/SGPT 78 U/L (7.0-40); AST/SGOT 42 U/L (<34); BILIRUBIN,TOTAL 0.5 MG/DL (0.3-1.2); BLOOD UREA NITROGEN 24 MG/DL (9-23); CALCIUM LEVEL 10.2 MG/DL (8.3-10.6); CARBON DIOXIDE LEVEL 28 MMOL/L (20-31); CHLORIDE LEVEL 111 MMOL/L (98-107); CHOLESTEROL LEVEL 157 MG/DL (<200); CHOLESTEROL RISK RATIO 3.06 (<5); GLOMERULAR FILTRATION RATE 58.2 (>39); GLUCOSE, FASTING 104 MG/DL (74-106); HDL CHOLESTEROL 51.3 MG/DL (>40); LDL CHOLESTEROL 79.7 MG/DL (<100); NON-HDL-C 105.7 MG/DL; POTASSIUM SERUM 4.4 MMOL/L (3.5-5.1); SODIUM LEVEL 143 MMOL/L (136-145); TOTAL PROTEIN 6.2 G/DL (5.7-8.2); TRIGLYCERIDES LEVEL 130 MG/DL (<150)
[2024-05-09] MEDS: NS 1,000 ML IV ONE (08:47)
[2024-05-09] MEDS: LIDOCAINE 5% (LIDODERM) PATCH TD SCH (08:48)
[2024-05-09] MEDS: ENOXAPARIN 40MG/0.4ML SYRINGE (J1650 PER 10MG) SC SCH (08:48)
[2024-05-09] MEDS: EZETIMIBE 10MG TABLET (ZETIA) PO SCH (08:48)
[2024-05-09] MEDS: PANTOPRAZOLE 40MG TAB (PROTONIX) PO SCH (08:49)
[2024-05-09] MEDS: DULoxetine 30MG CAPSULE (CYMBALTA) PO SCH (08:50)
[2024-05-09] MEDS: CYANOCOBALAMIN 500 MCG TAB PO SCH (08:50)
[2024-05-09] MEDS: CLOPIDOGREL 75 MG TAB PO SCH (08:50)
[2024-05-09] MEDS: ASPIRIN 81MG ENTERIC TABLET PO SCH (08:50)
[2024-05-09 08:55] LABS: CPK CREATINE PHOSPHOKINASE 91 U/L (34-145)
[2024-05-09] MEDS ORDERED: amLODIPine 5 MG TAB PO SCH (09:00)
[2024-05-09] MEDS ORDERED: IRBESARTAN 150MG TAB PO SCH (09:00)
[2024-05-09 11:41] LABS: VITAMIN B12 LEVEL 1098 PG/ML (211-911)
[2024-05-09 11:53] LABS: HEPATITIS B SURFACE ANTIGEN NEGATIVE (NEGATIVE)
[2024-05-09 12:12] LABS: HEPATITIS C VIRUS ABY INDEX < 0.02 INDEX (<0.8)
[2024-05-09 12:13] LABS: HEPATITIS B CORE ANTIBODY IGM NEGATIVE (NEGATIVE)
[2024-05-09] MEDS: hydrALAZINE 20MG/ML 1ML VIAL IV PRN (16:32)
[2024-05-09] MEDS: ACETAMINOPHEN 650MG ER TAB (TYLENOL ARTHRITIS) PO PRN (17:32)
[2024-05-09] MEDS: BACLOFEN 10 MG TAB PO SCH (20:52)
[2024-05-09] MEDS: PYRIDOXINE 50 MG TAB PO SCH (20:52)
[2024-05-09] MEDS: FAMOTIDINE 20 MG TAB PO SCH (20:52)
[2024-05-09] MEDS ORDERED: ROSUVASTATIN 10 MG TAB (CRESTOR) PO SCH (21:00)
[2024-05-09] MEDS ORDERED: clonazePAM 1 MG TAB PO SCH (21:00)
[2024-05-10] VITALS (14 sets, daily range): BP systolic 138–182; BP diastolic 65–88; TEMP 97.3–98.3; O2SAT 92–98
[2024-05-10 07:08] LABS: BASO % 0.4 % (0.0-1.0); EOS % 0.7 % (0.0-3.0); HEMATOCRIT 33.3 % (36.0-47.0); HEMOGLOBIN 10.8 g/dl (12.0-15.5); LYMPH # 2.7 10^3/uL (1.5-5.0); LYMPH % 48.4 % (24.0-44.0); MEAN CORPUSCULAR HEMOGLOBIN 29.4 pg (27.0-33.0); MEAN CORPUSCULAR HGB CONC 32.4 g/dl (32.0-36.5); MEAN CORPUSCULAR VOLUME 90.7 fl (80.0-96.0); MONO # 0.5 10^3/uL (0.0-0.8); NEUTROPHILS # 2.3 10^3/uL (1.5-8.5); NEUTROPHILS % 41.3 % (36.0-66.0); PLATELET COUNT, AUTOMATED 213 10^3/uL (150-450); RED BLOOD COUNT 3.67 10^6/uL (4.00-5.40); WHITE BLOOD COUNT 5.6 10^3/uL (4.0-10.0)
[2024-05-10 07:38] LABS: ALBUMIN 3.4 G/DL (3.2-5.2); ALKALINE PHOSPHATASE 144 U/L (46-116); ALT/SGPT 58 U/L (7.0-40); AST/SGOT 36 U/L (<34); BILIRUBIN,TOTAL 0.3 MG/DL (0.3-1.2); BLOOD UREA NITROGEN 23 MG/DL (9-23); CALCIUM LEVEL 9.4 MG/DL (8.3-10.6); CARBON DIOXIDE LEVEL 24 MMOL/L (20-31); CHLORIDE LEVEL 110 MMOL/L (98-107); CREATININE FOR GFR 0.94 MG/DL (0.55-1.30); GLOMERULAR FILTRATION RATE > 60.0 (>39); GLUCOSE, FASTING 96 MG/DL (74-106); POTASSIUM SERUM 4.1 MMOL/L (3.5-5.1); SODIUM LEVEL 139 MMOL/L (136-145); TOTAL PROTEIN 5.9 G/DL (5.7-8.2)
[2024-05-10] MEDS: ARTIFICIAL TEARS DROPS 15ML BTL (VISINE DRY RELIEF) OU SCH (10:24)
[2024-05-10] MEDS ORDERED: LABETALOL 100MG/20ML VIAL IV PRN (13:35)
[2024-05-10] MEDS ORDERED: KETOROLAC 30 MG/ML 1ML VIAL IV PRN (13:35)
[2024-05-10] MEDS: **hydrALAZINE HCL** 25 MG TAB PO SCH (14:46)
[2024-05-10] MEDS: ACETAMINOPHEN 650MG ER TAB (TYLENOL ARTHRITIS) PO PRN (19:44)
[2024-05-10] MEDS: clonazePAM 1 MG TAB PO SCH (21:24)
[2024-05-11 04:45] VITALS: BP 140/86; TEMP 97; O2SAT 98
[2024-05-11 07:00] VITALS: O2SAT 97
[2024-05-11 07:55] VITALS: BP 152/68; TEMP 97.8; O2SAT 97
[2024-05-11 10:03] VITALS: BP 152/68
[2024-05-11] MEDS ORDERED: MINO2.5T PO (10:05)
[2024-05-11] MEDS ORDERED: CLON1TAB8 PO (10:05)
[2024-05-11] MEDS ORDERED: HYDR25TA87 PO (10:05)
[2024-05-11] MEDS ORDERED: TYLE650T38 PO (10:05)
[2024-05-11] MEDS ORDERED: IRBE300T25 PO ×2 (10:05→10:06)
[2024-05-11] MEDS ORDERED: AMLO10TA PO (10:05)
[2024-05-11] MEDS ORDERED: LIDO5TD TD (10:05)
[2024-05-11 11:34] VITALS: BP 144/63; TEMP 97.8; O2SAT 98
[2024-05-11 12:00] VITALS: O2SAT 98
== END 2024-05-11 13:20 | disposition home health service (06) | DRG 917 ==
LOC: M ED 15:33 → EDBD 15:33 → M ED INP 20:22 → M PCU 23:29
PROVIDERS: ADMIT Family Medicine; ATTEND Family Medicine
DX: T40.2X1A Poisoning by other opioids, accidental (unintentional), initial encounter (principal); G92.8 Other toxic encephalopathy; N17.9 Acute kidney failure, unspecified; I10 Essential (primary) hypertension; F17.210 Nicotine dependence, cigarettes, uncomplicated; G47.33 Obstructive sleep apnea (adult) (pediatric); K58.9 Irritable bowel syndrome, unspecified; K21.9 Gastro-esophageal reflux disease without esophagitis; F32.A Depression, unspecified; F41.9 Anxiety disorder, unspecified; L65.9 Nonscarring hair loss, unspecified; I65.29 Occlusion and stenosis of unspecified carotid artery; M79.7 Fibromyalgia; J45.909 Unspecified asthma, uncomplicated; M54.50 Low back pain, unspecified; G89.29 Other chronic pain; R74.01 Elevation of levels of liver transaminase levels; I73.9 Peripheral vascular disease, unspecified; E78.5 Hyperlipidemia, unspecified; Z79.82 Long term (current) use of aspirin; Z79.899 Other long term (current) drug therapy; Z79.891 Long term (current) use of opiate analgesic; Z88.5 Allergy status to narcotic agent; Z88.8 Allergy status to other drugs, medicaments and biological substances; Z86.73 Personal history of transient ischemic attack (TIA), and cerebral infarction without residual deficits; Z90.79 Acquired absence of other genital organ(s); Z90.49 Acquired absence of other specified parts of digestive tract

== ENCOUNTER → 2024-05-17 | Outpatient (CLI) | payer MEDICARE, BC ==
[~2024-05-17] MED LIST changes: +AMLO10TA PO; +B-12100010 PO; +CLON1TAB8 PO; +HYDR25TA87 PO; +LIDO5TD TD; +MAGN250T7 PO; +MECL-86 PO; +ROSU20TA61 PO; +TYLE650T38 PO; +VITA100C8 PO; +VITA50TA6 PO
== END ==
LOC: M PLALAB 14:11
PROVIDERS: ATTEND Internal Medicine
DX: M79.661 Pain in right lower leg (principal); M25.571 Pain in right ankle and joints of right foot

== ENCOUNTER 2024-05-25 12:31 | Emergency (ER) | payer MEDICARE, BC, OTHER ==
[~2024-05-25] VITALS: Ht 170.2 cm; Wt 82.8 kg
[~2024-05-25 12:31] MED LIST changes: -ROSU20TA61 PO; +ROSU20TA86 PO
[2024-05-25] MEDS: NS 1,000 ML IV ONE ×3 (12:44→20:42)
[2024-05-25 12:57] LABS: BASO % 0.3 % (0.0-1.0); EOS % 0.1 % (0.0-3.0); HEMATOCRIT 39.6 % (36.0-47.0); HEMOGLOBIN 12.7 g/dl (12.0-15.5); LYMPH # 2.6 10^3/uL (1.5-5.0); LYMPH % 34.2 % (24.0-44.0); MEAN CORPUSCULAR HEMOGLOBIN 29.7 pg (27.0-33.0); MEAN CORPUSCULAR HGB CONC 32.1 g/dl (32.0-36.5); MEAN CORPUSCULAR VOLUME 92.5 fl (80.0-96.0); MONO # 0.7 10^3/uL (0.0-0.8); MONO % 9.3 % (2.0-8.0); NEUTROPHILS # 4.3 10^3/uL (1.5-8.5); NEUTROPHILS % 55.8 % (36.0-66.0); PLATELET COUNT, AUTOMATED 253 10^3/uL (150-450); RED BLOOD COUNT 4.28 10^6/uL (4.00-5.40); WHITE BLOOD COUNT 7.6 10^3/uL (4.0-10.0)
[2024-05-25 13:19] LABS: CK-MB VALUE MASS < 1.0 NG/ML (<3.6)
[2024-05-25 13:21] LABS: ALBUMIN 3.1 G/DL (3.2-5.2); ALKALINE PHOSPHATASE 112 U/L (46-116); ALT/SGPT 117 U/L (7.0-40); AST/SGOT 102 U/L (<34); BILIRUBIN,DIRECT < 0.1 MG/DL (<0.4); BILIRUBIN,TOTAL 0.5 MG/DL (0.3-1.2); BLOOD UREA NITROGEN 22 MG/DL (9-23); CARBON DIOXIDE LEVEL 22 MMOL/L (20-31); CHLORIDE LEVEL 111 MMOL/L (98-107); CREATININE FOR GFR 1.14 MG/DL (0.55-1.30); GLUCOSE, FASTING 119 MG/DL (74-106); POTASSIUM SERUM 4.2 MMOL/L (3.5-5.1); SODIUM LEVEL 140 MMOL/L (136-145); TOTAL PROTEIN 5.8 G/DL (5.7-8.2)
[2024-05-25 13:23] LABS: THYROID STIMULATING HORMONE 1.853 uIU/ML (0.55-4.78)
[2024-05-25 13:30] LABS: CPK CREATINE PHOSPHOKINASE 43 U/L (34-145); MB/CK RELATIVE INDEX 2.32 (< OR =4)
[2024-05-25] MEDS: NS 1,000 ML IV SCH (13:50)
[2024-05-25] MEDS ORDERED: ISOVUE-370 76% 100ML VIAL As Ordered ONE (13:54)
[2024-05-25 15:32] LABS: CK-MB VALUE MASS < 1.0 NG/ML (<3.6)
[2024-05-25 15:33] LABS: CPK CREATINE PHOSPHOKINASE 45 U/L (34-145); MB/CK RELATIVE INDEX 2.22 (< OR =4)
[2024-05-25] MEDS: NOREPINEPHRINE 4MG IN D5 250ML 4 MG in IV 1 EA IV SCH (16:27)
[2024-05-25] MEDS: HEPARIN SOD (PORCINE) 5000UNITS/ML 1ML VIAL/SYRINGE IV PRN (16:38)
[2024-05-25] MEDS: HEPARIN DRIP 25,000 UNITS in IV 1 EA IV SCH (16:42)
[2024-05-25 17:24] LABS: MB/CK RELATIVE INDEX 1.81 (< OR =4)
[2024-05-25] MEDS: ONDANSETRON 4MG 2ML VIAL IV ONE (18:04)
[2024-05-25] MEDS: HYDROMORPHONE HCL 0.5 MG/ 0.5 ML SYRINGE IV ONE (18:05)
[2024-05-25] MEDS ORDERED: AMLO1TAB25 PO (18:24)
[2024-05-25] MEDS ORDERED: HOME MED LIST COMPLETE! XX SCH (18:30)
[2024-05-25 19:00] VITALS: TEMP 97.6
[2024-05-25 20:45] VITALS: BP 102/49; O2SAT 94
== END 2024-05-25 21:00 | disposition short-term general hospital (02) ==
LOC: EDBD 12:31 → M ED 12:31
DX: I21.4 Non-ST elevation (NSTEMI) myocardial infarction (principal); U07.1 COVID-19; I95.9 Hypotension, unspecified; I10 Essential (primary) hypertension; E78.5 Hyperlipidemia, unspecified; F32.A Depression, unspecified; I73.9 Peripheral vascular disease, unspecified; Z87.891 Personal history of nicotine dependence; Z79.82 Long term (current) use of aspirin; Z79.899 Other long term (current) drug therapy; Z88.5 Allergy status to narcotic agent; Z88.8 Allergy status to other drugs, medicaments and biological substances
CPT/HCPCS: 36556; 71045; 71275; 80047; 80048; 80076; 82550; 82553; 83605; 84443; 84484; 85025; 85730; 87040; 87486; 87581; 87633; 87798; 93005; 93306; 96361; 96374; 96375; 99291; 99292; J1170; J2405; Q9967

== ENCOUNTER → 2024-07-09 | Outpatient (CLI) | payer MEDICARE, BC, OTHER ==
[~2024-07-09] MED LIST changes: +AMLO1TAB25 PO; +PROHANCE 279.3MG/ML 15ML VIAL As Ordered ONE; +PROHANCE 279.3MG/ML 5ML VIAL As Ordered ONE; -ROSU5TAB40 PO; +ROSU5TAB49 PO
== END ==
LOC: M RAD 14:59
PROVIDERS: ATTEND Physical Medicine & Rehabilitation
DX: M47.897 Other spondylosis, lumbosacral region (principal); Z98.1 Arthrodesis status; M47.816 Spondylosis without myelopathy or radiculopathy, lumbar region
CPT/HCPCS: 72158; A9576

== ENCOUNTER → 2024-07-16 | Outpatient (REF) | payer MEDICARE, BC, OTHER ==
[~2024-07-16] MED LIST changes: -PROHANCE 279.3MG/ML 15ML VIAL As Ordered ONE; -PROHANCE 279.3MG/ML 5ML VIAL As Ordered ONE
== END ==
LOC: M LAB REF 12:20
PROVIDERS: ATTEND Internal Medicine
DX: N39.0 Urinary tract infection, site not specified (principal)

== ENCOUNTER 2024-07-26 05:30 | Emergency (ER) | payer MEDICARE, BC, OTHER ==
[~2024-07-26] VITALS: Ht 172.7 cm; Wt 81.6 kg
[2024-07-26 05:35] VITALS: BP 151/65; TEMP 97.8; O2SAT 98
[2024-07-26] MEDS ORDERED: CLON2TAB14 PO (06:45)
[2024-07-26] MEDS ORDERED: CARV6.25 PO (06:45)
[2024-07-26] MEDS ORDERED: FERROUS GLUCONATE (06:53)
[2024-07-26] MEDS ORDERED: FERR324T21 PO (06:53)
[2024-07-26] MEDS ORDERED: WARF-60 PO (06:57)
[2024-07-26 07:20] LABS: BASO # 0.1 10^3/uL (0.0-0.2); BASO % 0.5 % (0.0-1.0); EOS # 0.2 10^3/uL (0.0-0.5); EOS % 1.1 % (0.0-3.0); HEMOGLOBIN 11.7 g/dl (12.0-15.5); LYMPH # 1.9 10^3/uL (1.5-5.0); LYMPH % 13.3 % (24.0-44.0); MEAN CORPUSCULAR HEMOGLOBIN 30.5 pg (27.0-33.0); MEAN CORPUSCULAR HGB CONC 32.5 g/dl (32.0-36.5); MEAN CORPUSCULAR VOLUME 93.8 fl (80.0-96.0); NEUTROPHILS # 11.3 10^3/uL (1.5-8.5); NEUTROPHILS % 77.5 % (36.0-66.0); PLATELET COUNT, AUTOMATED 334 10^3/uL (150-450); RED BLOOD COUNT 3.84 10^6/uL (4.00-5.40); WHITE BLOOD COUNT 14.5 10^3/uL (4.0-10.0)
[2024-07-26] MEDS: cefTRIAXone SOD 1 GM in DEXTROSE 5% (D5W) ADV/MINI-BAG 50 ML IV ONE (07:30)
[2024-07-26 07:55] LABS: BLOOD UREA NITROGEN 20 MG/DL (9-23); CALCIUM LEVEL 9.7 MG/DL (8.3-10.6); CHLORIDE LEVEL 107 MMOL/L (98-107); CREATININE FOR GFR 0.86 MG/DL (0.55-1.30); GLOMERULAR FILTRATION RATE > 60.0 (>39); GLUCOSE, FASTING 108 MG/DL (74-106); POTASSIUM SERUM 3.9 MMOL/L (3.5-5.1); SODIUM LEVEL 141 MMOL/L (136-145)
[2024-07-26 08:06] LABS: CARBON DIOXIDE LEVEL 25 MMOL/L (20-31)
[2024-07-26] MEDS ORDERED: CEFD1CAP9 PO (09:22)
[2024-07-26] MEDS: CEFDINIR 300 MG CAP (OMNICEF) PO ONE (09:30)
== END 2024-07-26 09:56 | disposition home or self-care (01) ==
LOC: M ED 05:30
DX: N10 Acute pyelonephritis (principal); K57.30 Diverticulosis of large intestine without perforation or abscess without bleeding; K59.00 Constipation, unspecified; I11.0 Hypertensive heart disease with heart failure; E78.5 Hyperlipidemia, unspecified; K21.9 Gastro-esophageal reflux disease without esophagitis; Z86.718 Personal history of other venous thrombosis and embolism; Z86.73 Personal history of transient ischemic attack (TIA), and cerebral infarction without residual deficits; Z86.79 Personal history of other diseases of the circulatory system; I73.9 Peripheral vascular disease, unspecified; Z90.49 Acquired absence of other specified parts of digestive tract
CPT/HCPCS: 74176; 80048; 81001; 85025; 87088; 87186; 96374; 99284; J0696

== ENCOUNTER → 2024-08-14 | Outpatient (REF) | payer MEDICARE, OTHER ==
[~2024-08-14] MED LIST changes: +CARV6.25 PO; +CEFD1CAP9 PO; +CLON2TAB14 PO; +FERR324T21 PO; +FERROUS GLUCONATE; +WARF-60 PO
[2024-08-14 18:02] LABS: FOLATE 10.8 NG/ML (>5.4)
[2024-08-14 18:03] LABS: FERRITIN 48.4 NG/ML (7.3-270.7)
== END ==
LOC: M LAB REF 16:30
PROVIDERS: ATTEND Internal Medicine
DX: D64.9 Anemia, unspecified (principal)

== ENCOUNTER → 2024-08-15 | Outpatient (CLI) | payer MEDICARE, OTHER | LOC: M WUC 11:56 | PROVIDERS: ATTEND Internal Medicine | DX: M17.12 Unilateral primary osteoarthritis, left knee (principal); M25.562 Pain in left knee; M25.462 Effusion, left knee ==

== ENCOUNTER → 2024-09-28 | Outpatient (CLI) | payer MEDICARE, OTHER ==
[2024-09-28 16:02] LABS: C REACTIVE PROTEIN QUANTITATIV 0.7 MG/DL (<1.0)
== END ==
LOC: M PLALAB 12:10
PROVIDERS: ATTEND Physical Medicine & Rehabilitation
DX: M43.16 Spondylolisthesis, lumbar region (principal)

== ENCOUNTER 2024-11-02 12:16 | Emergency (ER) | payer MEDICARE, OTHER ==
[~2024-11-02] VITALS: Ht 170.2 cm; Wt 81.8 kg
[2024-11-02 13:22] LABS: BASO % 0.4 % (0.0-1.0); EOS # 0.1 10^3/uL (0.0-0.5); EOS % 1.4 % (0.0-3.0); HEMATOCRIT 40.2 % (36.0-47.0); HEMOGLOBIN 12.7 g/dl (12.0-15.5); LYMPH # 2.2 10^3/uL (1.5-5.0); LYMPH % 22.2 % (24.0-44.0); MEAN CORPUSCULAR HEMOGLOBIN 27.9 pg (27.0-33.0); MEAN CORPUSCULAR HGB CONC 31.6 g/dl (32.0-36.5); MEAN CORPUSCULAR VOLUME 88.2 fl (80.0-96.0); MONO # 0.8 10^3/uL (0.0-0.8); MONO % 8.4 % (2.0-8.0); NEUTROPHILS # 6.7 10^3/uL (1.5-8.5); NEUTROPHILS % 67.2 % (36.0-66.0); PLATELET COUNT, AUTOMATED 315 10^3/uL (150-450); RED BLOOD COUNT 4.56 10^6/uL (4.00-5.40)
[2024-11-02] MEDS ORDERED: ISOVUE-370 76% 100ML VIAL As Ordered ONE (13:24)
[2024-11-02 13:32] LABS: INR 2.97; PARTIAL THROMBOPLASTIN TIME 41.3 SECONDS (24.8-34.2); PROTHROMBIN TIME 30.8 SECONDS (12.5-14.5)
[2024-11-02 13:48] LABS: FREE T4 1.12 NG/DL (0.89-1.76); THYROID STIMULATING HORMONE 1.277 uIU/ML (0.55-4.78)
[2024-11-02 14:30] VITALS: BP 160/70; TEMP 97.2; O2SAT 99
== END 2024-11-02 14:41 | disposition left against medical advice (07) ==
LOC: M ED 12:16
DX: R26.81 Unsteadiness on feet (principal); R55 Syncope and collapse; Z53.9 Procedure and treatment not carried out, unspecified reason; K21.9 Gastro-esophageal reflux disease without esophagitis; K58.9 Irritable bowel syndrome, unspecified; F32.9 Major depressive disorder, single episode, unspecified; Z86.73 Personal history of transient ischemic attack (TIA), and cerebral infarction without residual deficits; Z79.82 Long term (current) use of aspirin; Z79.899 Other long term (current) drug therapy; Z79.01 Long term (current) use of anticoagulants; Z88.5 Allergy status to narcotic agent; Z88.8 Allergy status to other drugs, medicaments and biological substances
CPT/HCPCS: 70450; 70496; 70498; 71045; 72125; 72190; 80047; 84439; 84443; 85025; 85610; 85730; 93005; 93041; 94760; 99284; Q9967

== ENCOUNTER → 2024-11-14 | Outpatient (CLI) | payer MEDICARE, BC, OTHER | LOC: M WHC 09:32 | PROVIDERS: ATTEND Internal Medicine | DX: R74.01 Elevation of levels of liver transaminase levels (principal) ==

== ENCOUNTER → 2024-11-15 | Outpatient (CLI) | payer MEDICARE, BC, OTHER ==
[~2024-11-15] MED LIST changes: +ISOVUE-370 76% 100ML VIAL As Ordered ONE
== END ==
LOC: M RAD 06:48
PROVIDERS: ATTEND Internal Medicine
DX: R10.811 Right upper quadrant abdominal tenderness (principal)
CPT/HCPCS: 74160; Q9967

== ENCOUNTER → 2024-11-16 | Outpatient (REF) | payer MEDICARE, BC, OTHER ==
[~2024-11-16] MED LIST changes: -ISOVUE-370 76% 100ML VIAL As Ordered ONE
[2024-11-16 16:11] LABS: HEPATITIS B SURFACE ANTIGEN NEGATIVE (NEGATIVE)
[2024-11-16 16:33] LABS: HEPATITIS B CORE ANTIBODY IGM NEGATIVE (NEGATIVE); HEPATITIS C VIRUS ABY INDEX 0.04 INDEX (<0.8)
== END ==
LOC: M LAB REF 14:50
PROVIDERS: ATTEND Internal Medicine
DX: R74.01 Elevation of levels of liver transaminase levels (principal)

== ENCOUNTER → 2024-12-04 | Outpatient (CLI) | payer MEDICARE, BC, OTHER | LOC: M PLARAD 12:45 | PROVIDERS: ATTEND Internal Medicine | DX: D37.4 Neoplasm of uncertain behavior of colon (principal) | CPT/HCPCS: 78815; A9552 ==

== ENCOUNTER 2025-01-09 01:29 | Emergency (ER) | payer MEDICARE, BC, OTHER ==
[~2025-01-09] VITALS: Ht 170.2 cm; Wt 81.8 kg
[~2025-01-09 01:29] MED LIST changes: +AMLO-751 PO; -AMLO10TA PO
[2025-01-09 02:41] LABS: BASO % 0.2 % (0.0-1.0); EOS # 0.1 10^3/uL (0.0-0.5); EOS % 1.3 % (0.0-3.0); LYMPH % 35.1 % (24.0-44.0); MEAN CORPUSCULAR HEMOGLOBIN 29.4 pg (27.0-33.0); MEAN CORPUSCULAR HGB CONC 32.5 g/dl (32.0-36.5); MEAN CORPUSCULAR VOLUME 90.5 fl (80.0-96.0); MONO # 0.6 10^3/uL (0.0-0.8); MONO % 7.1 % (2.0-8.0); NEUTROPHILS # 4.8 10^3/uL (1.5-8.5); NEUTROPHILS % 56.1 % (36.0-66.0); PLATELET COUNT, AUTOMATED 248 10^3/uL (150-450); RED BLOOD COUNT 4.42 10^6/uL (4.00-5.40); WHITE BLOOD COUNT 8.5 10^3/uL (4.0-10.0)
[2025-01-09 02:49] LABS: KETONE, URINE AUTO RFX NEGATIVE (NEGATIVE); NITRITE, URINE AUTO RFX NEGATIVE (NEGATIVE); RBC, URINE AUTO RFX 1 /HPF (0-3); SQUAM EPITHELIAL CELL UR AURFX 0 /HPF (0-6); WBC, URINE AUTO RFX 4 /HPF (0-3)
[2025-01-09 02:50] LABS: LEUKOCYTE ESTERASE UR AUTO RFX TRACE (NEGATIVE)
[2025-01-09 03:09] LABS: ALBUMIN 4.1 G/DL (3.2-5.2); ALKALINE PHOSPHATASE 104 U/L (35-104); ALT/SGPT 17 U/L (7.0-40); AST/SGOT 58 U/L (<34); BILIRUBIN,DIRECT < 0.1 MG/DL (<0.4); BILIRUBIN,TOTAL 0.3 MG/DL (0.3-1.2); BLOOD UREA NITROGEN 30 MG/DL (9-23); CARBON DIOXIDE LEVEL 25 MMOL/L (20-31); CHLORIDE LEVEL 104 MMOL/L (98-107); CREATININE FOR GFR 1.01 MG/DL (0.55-1.30); GLOMERULAR FILTRATION RATE 59.2 (>39); GLUCOSE, FASTING 110 MG/DL (74-106); LIPASE 26 U/L (12-53); POTASSIUM SERUM 5.4 MMOL/L (3.5-5.1); SODIUM LEVEL 139 MMOL/L (136-145); TOTAL PROTEIN 7.3 G/DL (5.7-8.2)
[2025-01-09] MEDS ORDERED: ISOVUE-370 76% 100ML VIAL As Ordered ONE (03:55)
[2025-01-09] MEDS: FAMOTIDINE IV BAG 20 MG in IV 1 EA IV ONE (03:57)
[2025-01-09] MEDS: PANTOPRAZOLE 40MG VIAL IV ONE (03:57)
[2025-01-09] MEDS: KETOROLAC 30 MG/ML 1ML VIAL IV ONE (03:57)
[2025-01-09] MEDS: SUCRALFATE 1 GM TAB PO ONE (03:57)
[2025-01-09] MEDS: ONDANSETRON 4MG 2ML VIAL IV ONE (03:57)
[2025-01-09 04:11] LABS: ETHYL ALCOHOL (ETHANOL) 0.004 % (0.000-0.010)
[2025-01-09 04:32] LABS: AMPHETAMINES LEVEL URINE NEGATIVE (NEGATIVE); BARBITURATES URINE NEGATIVE (NEGATIVE); BENZODIAZEPINES URINE NEGATIVE (NEGATIVE); CANNABINOIDS URINE NEGATIVE (NEGATIVE); COCAINE METABOLITE URINE NEGATIVE (NEGATIVE); METHADONE URINE NEGATIVE (NEGATIVE); PHENCYCLIDINE URINE NEGATIVE (NEGATIVE)
[2025-01-09 04:39] LABS: OPIATES URINE POSITIVE (NEGATIVE)
[2025-01-09 06:01] VITALS: TEMP 97.9
[2025-01-09 06:15] VITALS: BP 132/58; O2SAT 96
[2025-01-09] MEDS ORDERED: PRED20TA PO (06:25)
[2025-01-09] MEDS ORDERED: CARA1TAB6 PO (06:25)
== END 2025-01-09 06:41 | disposition home or self-care (01) ==
LOC: M ED 01:29
DX: R10.9 Unspecified abdominal pain (principal); K21.9 Gastro-esophageal reflux disease without esophagitis; I10 Essential (primary) hypertension; Z87.11 Personal history of peptic ulcer disease; G43.909 Migraine, unspecified, not intractable, without status migrainosus; F17.200 Nicotine dependence, unspecified, uncomplicated; K57.32 Diverticulitis of large intestine without perforation or abscess without bleeding; Z79.01 Long term (current) use of anticoagulants; Z79.82 Long term (current) use of aspirin; Z79.899 Other long term (current) drug therapy; Z88.5 Allergy status to narcotic agent; Z88.8 Allergy status to other drugs, medicaments and biological substances
CPT/HCPCS: 74177; 80048; 80076; 80307; 81001; 82077; 83690; 85025; 87088; 87186; 96365; 96375; 99284; J1308; J1885; J2405; J2470; Q9967

== ENCOUNTER → 2025-07-05 | Outpatient (CLI) | payer MEDICARE, BC, OTHER ==
[~2025-07-05] MED LIST changes: +CARA1TAB6 PO; -EQL50TAB2 PO; -EZET10TA21 PO; +EZET10TA57 PO; +PRED20TA PO; +VITA1TAB82 PO
[2025-07-05 16:03] LABS: BASO # 0.0 10^3/uL (0.0-0.2); BASO % 0.3 % (0.0-1.0); EOS # 0.1 10^3/uL (0.0-0.5); EOS % 0.5 % (0.0-3.0); LYMPH # 2.2 10^3/uL (1.5-5.0); LYMPH % 22.7 % (24.0-44.0); MONO # 0.7 10^3/uL (0.0-0.8); MONO % 7.7 % (2.0-8.0); NEUTROPHILS # 6.5 10^3/uL (1.5-8.5); NEUTROPHILS % 68.2 % (36.0-66.0); PLATELET COUNT, AUTOMATED 249 10^3/uL (150-450)
[2025-07-05 16:07] LABS: ALT/SGPT 41.0 U/L (7.0-40); AST/SGOT 48.0 U/L (<34); CALCIUM LEVEL 9.2 MG/DL (8.3-10.6); CARBON DIOXIDE LEVEL 25.0 MMOL/L (20-31); CHLORIDE LEVEL 107.0 MMOL/L (98-107); CHOLESTEROL LEVEL 153.0 MG/DL (<200); CHOLESTEROL RISK RATIO 2.24 (<5); CREATININE FOR GFR 1.31 MG/DL (0.55-1.30); GLOMERULAR FILTRATION RATE 43.0 (>39); LDL CHOLESTEROL 65.2 MG/DL (<100); NON-HDL-C 84.8 MG/DL; PHOSPHORUS LEVEL 3.8 MG/DL (2.4-5.1); POTASSIUM SERUM 4.6 MMOL/L (3.5-5.1); SODIUM LEVEL 143.0 MMOL/L (136-145); TRIGLYCERIDES LEVEL 98.0 MG/DL (<150)
[2025-07-05 16:08] LABS: THYROXINE (T4) 7.4 UG/DL (4.5-10.9)
[2025-07-05 16:14] LABS: ESTIMATED AVERAGE GLUCOSE 134.0 MG/DL (60-110)
== END ==
LOC: M PLALAB 11:53
PROVIDERS: ATTEND Nurse Practitioner Family
DX: E66.3 Overweight (principal); Z79.899 Other long term (current) drug therapy

== ENCOUNTER → 2025-08-09 | Outpatient (REF) | payer MEDICARE, OTHER | LOC: M SFHCDERM 17:20 | PROVIDERS: ATTEND Physician Assistant | DX: C44.529 Squamous cell carcinoma of skin of other part of trunk (principal) ==